=== PATIENT | female | born 1985 | race Caucasian/White ===

== ENCOUNTER 2016-12-23 15:24 | Emergency (ER) | payer MEDICAID ==
[~2016-12-23] VITALS: Ht 165.1 cm; Wt 75.0 kg
[~2016-12-23 15:24] MED LIST: ATIVAN 0.50.5 MG/TAB PO; BACTRIM DS 8001 TAB PO; BYSTOLIC PO; CATAPRES 0.1MG0.1 MG PO; CIPRO 500MG TA500 MG PO; CLINDAMYCIN300 MG PO; COLACE 100100 MG/CAP PO; DOXYCYCLINE 10100 MG PO; EC NAPROSYN500 MG PO; FLAGYL500 MG PO; FLEXERIL 1010 MG/TAB PO; IUD; KLONOPIN 1MG1 MG PO; LEXAPRO 10MG10 MG PO; LEXAPRO20 MG PO; LORTAB 5/500 501 TAB PO; METRONIDAZOLE375 MG PO; MOTRIN 400400 MG/TAB PO; NAPROXEN250 MG PO; NORCO 325 MG-51 TAB PO; OXECTA7.5 MG PO; PAXIL 10MG10 MG PO; PAXIL 20MG20 MG PO; PERCOCET 325 MG1 TA2; PERCOCET 325 MG1 TA2 PO; PERCOCET 5/321 UDTAB PO; PERCOCET 650 MG1 TAB PO; PHENERGAN 25 TA25 MG PO; PHENERGAN12.5 MG/SU RC; PHENERGAN25 MG RC; PRENATAL VITAMI1 TA5 PO; PRINIVIL10 MG PO; SUBOXONE 2 MG-01 TAB PO; TOPROL XL 50MG50 MG PO; TOPROL XL100 MG PO; ULTRAM 50MG TAB50 MG; ULTRAM 50MG TAB50 MG PO; VALIUM 2MG T2 MG/TAB PO; VALIUM 5MG T5 MG/TAB PO; XANAX 0.5MG0.5 MG PO; XANAX 1MG1 MG PO; ZOFRAN 4MG T4 MG/TAB PO; [UNRECOGNIZED DRUG - OTHER] PO
[2016-12-23 15:41] VITALS: BP 126/75; TEMP 98.3
[2016-12-23] MEDS ORDERED: PRINIVIL10 MG PO (16:07)
[2016-12-23] MEDS ORDERED: CELEXA10 MG PO (16:07)
[2016-12-23] MEDS ORDERED: KLONOPIN 1MG1 MG PO (16:07)
[2016-12-23] MEDS ORDERED: SEROQUEL 1100 MG/TAB PO (16:07)
[2016-12-23] MEDS ORDERED: SEPTRA DS 8001 TAB PO (16:14)
[2016-12-23 16:26] VITALS: PULSE 107
== END 2016-12-23 16:26 | disposition home or self-care (01) ==
LOC: COL.ER 15:24
DX: F31.9 Bipolar disorder, unspecified (principal); I10 Essential (primary) hypertension; F17.210 Nicotine dependence, cigarettes, uncomplicated; Z76.0 Encounter for issue of repeat prescription

== ENCOUNTER 2017-02-02 13:44 | Emergency (ER) | payer MEDICAID ==
[~2017-02-02] VITALS: Ht 162.6 cm; Wt 79.5 kg
[~2017-02-02 13:44] MED LIST changes: +CELEXA10 MG PO; +SEPTRA DS 8001 TAB PO; +SEROQUEL 1100 MG/TAB PO
[2017-02-02 13:50] VITALS: BP 134/80; PULSE 84; TEMP 97.9
[2017-02-02] MEDS ORDERED: CELEXA 20MG20 MG/TAB PO (13:54)
[2017-02-02 14:24] LABS: PH 7 (5-8); URINE APPEARANCE Hazy; URINE BACTERIA Rare /hpf; URINE BILIRUBIN Negative (NEGATIVE); URINE BLOOD Negative (NEGATIVE); URINE COLOR Straw; URINE GLUCOSE Negative (NEGATIVE); URINE KETONE Negative (NEGATIVE); URINE RBC 0-2 /hpf; URINE UROBILINOGEN Negative (NEGATIVE); URINE WBC 0-2 /hpf
[2017-02-02] MEDS ORDERED: FLAGYL500 MG PO (15:02)
== END 2017-02-02 15:09 | disposition home or self-care (01) ==
LOC: COL.ER 13:44
PROVIDERS: Emergency Medicine
DX: R35.8 Other polyuria (principal); M54.5 Low back pain; I10 Essential (primary) hypertension; F41.9 Anxiety disorder, unspecified

== ENCOUNTER 2017-03-16 12:56 | Emergency (ER) | payer MEDICAID ==
[~2017-03-16] VITALS: Ht 162.6 cm; Wt 75.0 kg
[~2017-03-16 12:56] MED LIST changes: +CELEXA 20MG20 MG/TAB PO
[2017-03-16 12:57] VITALS: TEMP 98.9
[2017-03-16 13:44] LABS: BASO # 0.1 (0.0-0.2); BASO % 0.5 % (0.0-2.0); EOS # 0.1 (0.0-0.7); EOS % 1.3 % (0-4.0); GRAN # 6.6 (1.4-6.5); HEMATOCRIT 39.1 % (37.0-47.0); HEMOGLOBIN 13.7 g/dl (12.5-16.0); LYMPH # 2.4 (1.2-3.4); LYMPH % 24.4 % (20.0-51.0); MEAN CELL VOLUME 93 fl (80.0-100.0); MEAN CORPUSCULAR HEMOGLOBIN 33 pg (27.0-31.0); MEAN CORPUSCULAR HGB CONC 35 g/dl (33.0-37.0); MONO # 0.4 (0.1-0.6); MONO % 4.6 % (1.7-9.3); PLATELET COUNT 268 K/mm3 (130-400); RED BLOOD COUNT 4.21 M/mm3 (4.10-5.30); REDCELL DISTRIBUTION WIDTH-CV 12.9 % (11.5-14.5); WHITE BLOOD COUNT 9.7 K/mm3 (4.8-10.8)
[2017-03-16 13:50] LABS: PH 5 (5-8); SQUAMOUS EPITHELIAL 0-2 /hpf; URINE APPEARANCE Clear; URINE BACTERIA Rare /hpf; URINE BILIRUBIN Negative (NEGATIVE); URINE BLOOD 1+ (NEGATIVE); URINE COLOR Straw; URINE GLUCOSE Negative (NEGATIVE); URINE KETONE Negative (NEGATIVE); URINE RBC 0-2 /hpf; URINE UROBILINOGEN Negative (NEGATIVE); URINE WBC 0-2 /hpf
[2017-03-16 13:57] LABS: ADJUSTED CALCIUM 9.2 mg/dL (8.4-10.2); ALANINE AMINOTRANSFERASE 15 U/L (9-52); ALBUMIN 4.1 gm/dL (3.5-5.0); ALKALINE PHOSPHATASE 59 U/L (50-136); ANION GAP 11 mmol/L (7-16); BILIRUBIN,TOTAL 0.5 mg/dL (0.0-1.0); BLOOD UREA NITROGEN 9 mg/dL (7-17); CALCIUM 9.3 mg/dL (8.4-10.2); CARBON DIOXIDE 20 mmol/L (22-30); CHLORIDE 106 mmol/L (98-107); CREATININE, serum 0.72 mg/dL (0.52-1.25); GLUCOSE 143 mg/dL (74-106); POTASSIUM 3.8 mmol/L (3.4-5.0); SODIUM 137 mmol/L (137-145); TOTAL PROTEIN 7.3 gm/dL (6.4-8.2)
[2017-03-16 13:59] LABS: C-REACTIVE PROTEIN < 0.5 mg/dL (0.0-0.9)
[2017-03-16] MEDS ORDERED: NORCO 325 MG-51 TAB PO (15:19)
[2017-03-16 15:35] VITALS: BP 113/79; PULSE 92
== END 2017-03-16 15:38 | disposition home or self-care (01) ==
LOC: COL.ER 12:56
PROVIDERS: Nurse Practitioner
DX: R10.31 Right lower quadrant pain (principal); I10 Essential (primary) hypertension; F31.9 Bipolar disorder, unspecified; F17.210 Nicotine dependence, cigarettes, uncomplicated; Z90.711 Acquired absence of uterus with remaining cervical stump; Z87.42 Personal history of other diseases of the female genital tract
CPT/HCPCS: J1170; J2270; J2405; J7030; Q9967

== ENCOUNTER 2017-03-18 09:29 | Emergency (ER) | payer MEDICAID ==
[~2017-03-18] VITALS: Ht 162.6 cm; Wt 75.0 kg
[2017-03-18 09:35] VITALS: TEMP 99.7
[2017-03-18 10:17] LABS: HEMATOCRIT 39.3 % (37.0-47.0); HEMOGLOBIN 13.6 g/dl (12.5-16.0); MEAN CELL VOLUME 93 fl (80.0-100.0); MEAN CORPUSCULAR HEMOGLOBIN 32 pg (27.0-31.0); MEAN CORPUSCULAR HGB CONC 35 g/dl (33.0-37.0); PLATELET COUNT 267 K/mm3 (130-400); RED BLOOD COUNT 4.24 M/mm3 (4.10-5.30); WHITE BLOOD COUNT 7.4 K/mm3 (4.8-10.8)
[2017-03-18 10:18] LABS: ADD PATHOLOGY DIFF REVIEW NO
[2017-03-18 10:30] LABS: PH 6 (5-8); SQUAMOUS EPITHELIAL 0-2 /hpf; URINE APPEARANCE Clear; URINE BACTERIA Rare /hpf; URINE BILIRUBIN Negative (NEGATIVE); URINE BLOOD Negative (NEGATIVE); URINE COLOR Straw; URINE GLUCOSE 1+ (NEGATIVE); URINE KETONE Negative (NEGATIVE); URINE RBC 0-2 /hpf; URINE UROBILINOGEN Negative (NEGATIVE); URINE WBC 0-2 /hpf
[2017-03-18 10:32] LABS: ALANINE AMINOTRANSFERASE 12 U/L (9-52); ALKALINE PHOSPHATASE 67 U/L (50-136); ANION GAP 12 mmol/L (7-16); BILIRUBIN,TOTAL 0.4 mg/dL (0.0-1.0); BLOOD UREA NITROGEN 6 mg/dL (7-17); CARBON DIOXIDE 21 mmol/L (22-30); CHLORIDE 107 mmol/L (98-107); CREATININE, serum 0.68 mg/dL (0.52-1.25); GLUCOSE 181 mg/dL (74-106); LIPASE 37 U/L (23-300); POTASSIUM 3.9 mmol/L (3.4-5.0); SODIUM 140 mmol/L (137-145); TOTAL PROTEIN 7.1 gm/dL (6.4-8.2)
[2017-03-18 10:41] LABS: C-REACTIVE PROTEIN < 0.5 mg/dL (0.0-0.9)
[2017-03-18 10:45] LABS: BAND 1 % (0-10); NEUTROPHILS 62 % (42.0-75.2); PLATELET ESTIMATE NORMAL (NORMAL); TOTAL CELLS COUNTED 100
[2017-03-18] MEDS ORDERED: PERCOCET 325 MG1 TA2 PO (11:42)
[2017-03-18 11:45] VITALS: BP 128/84; PULSE 94
== END 2017-03-18 11:52 | disposition home or self-care (01) ==
LOC: COL.ER 09:29
PROVIDERS: Emergency Medicine
DX: R10.30 Lower abdominal pain, unspecified (principal); Z90.710 Acquired absence of both cervix and uterus
CPT/HCPCS: J1170; J2270; J2405; J7030

== ENCOUNTER 2017-05-26 10:34 | Emergency (ER) | payer MEDICAID ==
[~2017-05-26] VITALS: Ht 162.6 cm; Wt 72.7 kg
[2017-05-26 10:36] VITALS: TEMP 96.7
[2017-05-26 11:01] LABS: COLLECTION METHOD CLEAN CATCH
[2017-05-26 11:12] LABS: PH 6 (5-8); URINE APPEARANCE Hazy; URINE BACTERIA Many /hpf; URINE BILIRUBIN Negative (NEGATIVE); URINE BLOOD Negative (NEGATIVE); URINE COLOR Straw; URINE GLUCOSE 3+ (NEGATIVE); URINE KETONE Negative (NEGATIVE); URINE LEUKOCYTE ESTERASE Negative (NEGATIVE); URINE PROTEIN(semi-quant) Negative (NEGATIVE); URINE RBC 0-2 /hpf; URINE UROBILINOGEN Negative (NEGATIVE)
[2017-05-26 11:22] LABS: BASO % 0.4 % (0.0-2.0); EOS # 0.1 (0.0-0.7); EOS % 0.9 % (0-4.0); GRAN # 7.1 (1.4-6.5); GRAN % 74.3 % (42.2-75.2); HEMATOCRIT 45.3 % (37.0-47.0); HEMOGLOBIN 15.7 g/dl (12.5-16.0); LYMPH # 1.8 (1.2-3.4); LYMPH % 18.9 % (20.0-51.0); MEAN CELL VOLUME 94 fl (80.0-100.0); MEAN CORPUSCULAR HEMOGLOBIN 32 pg (27.0-31.0); MEAN CORPUSCULAR HGB CONC 35 g/dl (33.0-37.0); MEAN PLATELET VOLUME 10.2 fl (7.4-10.4); MONO # 0.4 (0.1-0.6); MONO % 4.6 % (1.7-9.3); PLATELET COUNT 325 K/mm3 (130-400); RED BLOOD COUNT 4.84 M/mm3 (4.10-5.30); WHITE BLOOD COUNT 9.6 K/mm3 (4.8-10.8)
[2017-05-26 11:32] LABS: ADJUSTED CALCIUM 9.6 mg/dL (8.4-10.2); ALBUMIN 4.8 gm/dL (3.5-5.0); BILIRUBIN,TOTAL 0.4 mg/dL (0.0-1.0); C-REACTIVE PROTEIN 0.6 mg/dL (0.0-0.9); CALCIUM 10.2 mg/dL (8.4-10.2); CREATININE, serum 0.66 mg/dL (0.52-1.25); POTASSIUM 3.4 mmol/L (3.4-5.0); TOTAL PROTEIN 8.4 gm/dL (6.4-8.2)
[2017-05-26 13:44] VITALS: BP 101/77; PULSE 88
== END 2017-05-26 13:44 | disposition home or self-care (01) ==
LOC: COL.ER 10:34
PROVIDERS: Emergency Medicine
DX: R10.30 Lower abdominal pain, unspecified (principal); R00.2 Palpitations; R00.0 Tachycardia, unspecified; G89.29 Other chronic pain; F31.9 Bipolar disorder, unspecified; F17.210 Nicotine dependence, cigarettes, uncomplicated; Z90.710 Acquired absence of both cervix and uterus; Z98.51 Tubal ligation status
CPT/HCPCS: J2060; J2270; J2405; J7030

== ENCOUNTER 2017-06-17 13:33 | Emergency (ER) | payer MEDICAID ==
[~2017-06-17] VITALS: Ht 162.6 cm; Wt 72.7 kg
[2017-06-17 13:37] VITALS: TEMP 98.8
[2017-06-17 15:21] VITALS: BP 153/99
[2017-06-17 15:58] LABS: COLLECTION METHOD CLEAN CATCH
[2017-06-17 16:03] LABS: BASO # 0.1 (0.0-0.2); BASO % 0.4 % (0.0-2.0); EOS % 0.2 % (0-4.0); GRAN # 9.7 (1.4-6.5); GRAN % 79.2 % (42.2-75.2); HEMATOCRIT 43.2 % (37.0-47.0); LYMPH # 1.7 (1.2-3.4); LYMPH % 14.3 % (20.0-51.0); MEAN CELL VOLUME 92 fl (80.0-100.0); MEAN CORPUSCULAR HEMOGLOBIN 32 pg (27.0-31.0); MEAN CORPUSCULAR HGB CONC 35 g/dl (33.0-37.0); MEAN PLATELET VOLUME 9.5 fl (7.4-10.4); MONO # 0.6 (0.1-0.6); MONO % 4.9 % (1.7-9.3); PLATELET COUNT 310 K/mm3 (130-400); WHITE BLOOD COUNT 12.2 K/mm3 (4.8-10.8)
[2017-06-17 16:05] LABS: PH 6 (5-8); SQUAMOUS EPITHELIAL 0-2 /hpf; URINE APPEARANCE Clear; URINE BACTERIA Rare /hpf; URINE BILIRUBIN Negative (NEGATIVE); URINE BLOOD 1+ (NEGATIVE); URINE COLOR Straw; URINE GLUCOSE Negative (NEGATIVE); URINE KETONE Negative (NEGATIVE); URINE LEUKOCYTE ESTERASE Negative (NEGATIVE); URINE PROTEIN(semi-quant) Negative (NEGATIVE); URINE RBC 0-2 /hpf; URINE UROBILINOGEN Negative (NEGATIVE); URINE WBC 0-2 /hpf
[2017-06-17] MEDS ORDERED: PERCOCET 325 MG1 TA2 PO (16:08)
[2017-06-17 16:39] LABS: ALANINE AMINOTRANSFERASE 25 U/L (9-52); ALBUMIN 4.9 gm/dL (3.5-5.0); ALKALINE PHOSPHATASE 77 U/L (50-136); ANION GAP 11 mmol/L (7-16); BILIRUBIN,TOTAL 0.4 mg/dL (0.0-1.0); BLOOD UREA NITROGEN 12 mg/dL (7-17); CALCIUM 9.7 mg/dL (8.4-10.2); CARBON DIOXIDE 23 mmol/L (22-30); CHLORIDE 105 mmol/L (98-107); CREATININE, serum 0.73 mg/dL (0.52-1.25); GLUCOSE 103 mg/dL (74-106); LIPASE 51 U/L (23-300); POTASSIUM 4.1 mmol/L (3.4-5.0); SODIUM 139 mmol/L (137-145); TOTAL PROTEIN 8.2 gm/dL (6.4-8.2)
[2017-06-17 16:44] LABS: C-REACTIVE PROTEIN < 0.5 mg/dL (0.0-0.9)
[2017-06-17 17:05] VITALS: PULSE 91
== END 2017-06-17 17:07 | disposition home or self-care (01) ==
LOC: COL.ER 13:33
PROVIDERS: Family Medicine
DX: K58.9 Irritable bowel syndrome, unspecified (principal)
CPT/HCPCS: C9113; J2060; J2270; J2405; J7030

== ENCOUNTER 2017-06-30 12:47 | Emergency (ER) | payer MEDICAID ==
[~2017-06-30] VITALS: Ht 162.6 cm; Wt 72.7 kg
[2017-06-30 12:58] VITALS: BP 138/97; TEMP 99.2
[2017-06-30 13:39] LABS: COLLECTION METHOD CLEAN CATCH
[2017-06-30 13:49] LABS: BASO % 0.4 % (0.0-2.0); EOS % 0.3 % (0-4.0); GRAN # 6.5 (1.4-6.5); GRAN % 69.7 % (42.2-75.2); HEMOGLOBIN 15.2 g/dl (12.5-16.0); LYMPH # 2.1 (1.2-3.4); LYMPH % 22.4 % (20.0-51.0); MEAN CELL VOLUME 93 fl (80.0-100.0); MEAN CORPUSCULAR HEMOGLOBIN 33 pg (27.0-31.0); MEAN CORPUSCULAR HGB CONC 35 g/dl (33.0-37.0); MONO # 0.6 (0.1-0.6); MONO % 6.1 % (1.7-9.3); PLATELET COUNT 314 K/mm3 (130-400); RED BLOOD COUNT 4.65 M/mm3 (4.10-5.30); REDCELL DISTRIBUTION WIDTH-CV 12.8 % (11.5-14.5)
[2017-06-30 13:51] LABS: MUCOUS Present /lpf; PH 6 (5-8); URINE APPEARANCE Hazy; URINE BACTERIA Many /hpf; URINE BILIRUBIN Negative (NEGATIVE); URINE BLOOD 1+ (NEGATIVE); URINE COLOR Yellow; URINE GLUCOSE Negative (NEGATIVE); URINE KETONE Negative (NEGATIVE); URINE LEUKOCYTE ESTERASE Negative (NEGATIVE); URINE NITRATE Negative (NEGATIVE); URINE PROTEIN(semi-quant) Negative (NEGATIVE); URINE UROBILINOGEN Negative (NEGATIVE)
[2017-06-30 13:54] LABS: ALANINE AMINOTRANSFERASE 19 U/L (9-52); ALBUMIN 5.2 gm/dL (3.5-5.0); ALKALINE PHOSPHATASE 80 U/L (50-136); ANION GAP 12 mmol/L (7-16); AST,SGOT 20 U/L (15-37); BILIRUBIN,TOTAL 0.7 mg/dL (0.0-1.0); BLOOD UREA NITROGEN 8 mg/dL (7-17); CALCIUM 9.9 mg/dL (8.4-10.2); CARBON DIOXIDE 23 mmol/L (22-30); CHLORIDE 104 mmol/L (98-107); CREATININE, serum 0.66 mg/dL (0.52-1.25); GLUCOSE 109 mg/dL (74-106); LIPASE 71 U/L (23-300); POTASSIUM 3.7 mmol/L (3.4-5.0); SODIUM 139 mmol/L (137-145); TOTAL PROTEIN 8.6 gm/dL (6.4-8.2)
[2017-06-30 13:55] LABS: C-REACTIVE PROTEIN < 0.5 mg/dL (0.0-0.9)
[2017-06-30] MEDS ORDERED: BACTRIM DS 8001 TAB PO (14:31)
[2017-06-30 15:08] VITALS: PULSE 82
== END 2017-06-30 15:08 | disposition home or self-care (01) ==
LOC: COL.ER 12:47
PROVIDERS: Nurse Practitioner Primary Care
DX: N12 Tubulo-interstitial nephritis, not specified as acute or chronic (principal); I10 Essential (primary) hypertension; F32.9 Major depressive disorder, single episode, unspecified; F41.9 Anxiety disorder, unspecified; F17.210 Nicotine dependence, cigarettes, uncomplicated; Z87.442 Personal history of urinary calculi; Z90.710 Acquired absence of both cervix and uterus; Z98.51 Tubal ligation status
CPT/HCPCS: J0696; J1170; J2270; J2405

== ENCOUNTER 2017-07-13 14:15 | Emergency (ER) | payer MEDICAID ==
[~2017-07-13] VITALS: Ht 162.6 cm; Wt 70.5 kg
[2017-07-13 14:17] VITALS: TEMP 99.9
[2017-07-13 14:47] LABS: BASO # 0.1 (0.0-0.2); BASO % 0.4 % (0.0-2.0); EOS # 0.1 (0.0-0.7); GRAN # 8.2 (1.4-6.5); GRAN % 62.6 % (42.2-75.2); HEMATOCRIT 43.9 % (37.0-47.0); LYMPH # 3.8 (1.2-3.4); LYMPH % 29.2 % (20.0-51.0); MEAN CELL VOLUME 96 fl (80.0-100.0); MEAN CORPUSCULAR HEMOGLOBIN 33 pg (27.0-31.0); MEAN CORPUSCULAR HGB CONC 34 g/dl (33.0-37.0); MEAN PLATELET VOLUME 9.8 fl (7.4-10.4); MONO # 0.8 (0.1-0.6); MONO % 5.9 % (1.7-9.3); PLATELET COUNT 287 K/mm3 (130-400); RED BLOOD COUNT 4.56 M/mm3 (4.10-5.30); REDCELL DISTRIBUTION WIDTH-CV 13.2 % (11.5-14.5)
[2017-07-13 14:55] LABS: ALANINE AMINOTRANSFERASE 16 U/L (9-52); ALBUMIN 4.5 gm/dL (3.5-5.0); ALKALINE PHOSPHATASE 66 U/L (50-136); ANION GAP 12 mmol/L (7-16); AST,SGOT 35 U/L (15-37); BILIRUBIN,TOTAL 0.4 mg/dL (0.0-1.0); BLOOD UREA NITROGEN 10 mg/dL (7-17); CALCIUM 9.6 mg/dL (8.4-10.2); CARBON DIOXIDE 25 mmol/L (22-30); CHLORIDE 100 mmol/L (98-107); CREATININE, serum 0.74 mg/dL (0.52-1.25); GLUCOSE 135 mg/dL (74-106); LIPASE 35 U/L (23-300); POTASSIUM 3.5 mmol/L (3.4-5.0); SODIUM 136 mmol/L (137-145); TOTAL PROTEIN 7.7 gm/dL (6.4-8.2)
[2017-07-13 14:59] LABS: C-REACTIVE PROTEIN < 0.5 mg/dL (0.0-0.9)
[2017-07-13 15:04] LABS: TROPONIN-I < 0.012 ng/mL (0.000-0.034)
[2017-07-13 15:28] LABS: COLLECTION METHOD CLEAN CATCH
[2017-07-13 15:37] LABS: MUCOUS Present /lpf; PH 6 (5-8); URINE APPEARANCE Cloudy; URINE BACTERIA Moderate /hpf; URINE BILIRUBIN Negative (NEGATIVE); URINE BLOOD 1+ (NEGATIVE); URINE COLOR Yellow; URINE GLUCOSE Negative (NEGATIVE); URINE KETONE Negative (NEGATIVE); URINE LEUKOCYTE ESTERASE Negative (NEGATIVE); URINE NITRATE Negative (NEGATIVE); URINE PROTEIN(semi-quant) Negative (NEGATIVE); URINE UROBILINOGEN Negative (NEGATIVE)
[2017-07-13 16:57] VITALS: BP 106/66; PULSE 78
[2017-07-13] MEDS ORDERED: PERCOCET 325 MG1 TA2 PO (19:17)
[2017-07-13] MEDS ORDERED: PHENERGAN 25 TA25 MG PO (21:04)
== END 2017-07-13 17:00 | disposition home or self-care (01) ==
LOC: COL.ER 14:15
PROVIDERS: Emergency Medicine
DX: F41.9 Anxiety disorder, unspecified (principal); F31.9 Bipolar disorder, unspecified; R10.11 Right upper quadrant pain; R10.31 Right lower quadrant pain; R00.0 Tachycardia, unspecified; F17.210 Nicotine dependence, cigarettes, uncomplicated
CPT/HCPCS: J2270; J7030

== ENCOUNTER 2017-07-13 18:26 | Emergency (ER) | payer MEDICAID ==
[~2017-07-13] VITALS: Ht 162.6 cm; Wt 70.5 kg
[2017-07-13 18:32] VITALS: TEMP 99.5
[2017-07-13] MEDS ORDERED: PERCOCET 325 MG1 TA2 PO (19:17)
[2017-07-13 19:47] LABS: COLLECTION METHOD CLEAN CATCH
[2017-07-13 19:57] LABS: BASO % 0.4 % (0.0-2.0); EOS # 0.1 (0.0-0.7); GRAN # 6.1 (1.4-6.5); GRAN % 65.2 % (42.2-75.2); HEMATOCRIT 38.6 % (37.0-47.0); LYMPH # 2.5 (1.2-3.4); LYMPH % 26.8 % (20.0-51.0); MEAN CELL VOLUME 97 fl (80.0-100.0); MEAN CORPUSCULAR HEMOGLOBIN 33 pg (27.0-31.0); MEAN CORPUSCULAR HGB CONC 34 g/dl (33.0-37.0); MEAN PLATELET VOLUME 9.8 fl (7.4-10.4); MONO # 0.6 (0.1-0.6); MONO % 5.9 % (1.7-9.3); PLATELET COUNT 224 K/mm3 (130-400); REDCELL DISTRIBUTION WIDTH-CV 13.2 % (11.5-14.5)
[2017-07-13 20:07] LABS: ALANINE AMINOTRANSFERASE 20 U/L (9-52); ALBUMIN 3.9 gm/dL (3.5-5.0); ALKALINE PHOSPHATASE 47 U/L (50-136); ANION GAP 5 mmol/L (7-16); AST,SGOT 16 U/L (15-37); BILIRUBIN,TOTAL 0.1 mg/dL (0.0-1.0); BLOOD UREA NITROGEN 8 mg/dL (7-17); CALCIUM 8.7 mg/dL (8.4-10.2); CARBON DIOXIDE 24 mmol/L (22-30); CHLORIDE 106 mmol/L (98-107); CREATININE, serum 0.64 mg/dL (0.52-1.25); GLUCOSE 82 mg/dL (74-106); POTASSIUM 4.1 mmol/L (3.4-5.0); SODIUM 134 mmol/L (137-145); TOTAL PROTEIN 6.8 gm/dL (6.4-8.2)
[2017-07-13 20:10] LABS: C-REACTIVE PROTEIN < 0.5 mg/dL (0.0-0.9)
[2017-07-13 20:38] LABS: PH 5 (5-8); URINE APPEARANCE Hazy; URINE BACTERIA Many /hpf; URINE BILIRUBIN Negative (NEGATIVE); URINE BLOOD 1+ (NEGATIVE); URINE COLOR Straw; URINE GLUCOSE Negative (NEGATIVE); URINE KETONE Negative (NEGATIVE); URINE LEUKOCYTE ESTERASE Negative (NEGATIVE); URINE NITRATE Negative (NEGATIVE); URINE PROTEIN(semi-quant) Negative (NEGATIVE); URINE RBC 0-2 /hpf; URINE UROBILINOGEN Negative (NEGATIVE)
[2017-07-13] MEDS ORDERED: PHENERGAN 25 TA25 MG PO (21:04)
[2017-07-13 21:46] VITALS: BP 112/74; PULSE 79
== END 2017-07-13 21:48 | disposition home or self-care (01) ==
LOC: COL.ER 18:26
PROVIDERS: Emergency Medicine
DX: R10.30 Lower abdominal pain, unspecified (principal); G89.29 Other chronic pain; F31.9 Bipolar disorder, unspecified; Z87.440 Personal history of urinary (tract) infections; Z90.710 Acquired absence of both cervix and uterus
CPT/HCPCS: J1170; J1200; J1630; J7030

== ENCOUNTER 2017-07-20 17:12 | Emergency (ER) | payer MEDICAID ==
[~2017-07-20] VITALS: Ht 162.6 cm; Wt 72.7 kg
[2017-07-20 17:14] VITALS: BP 135/78; PULSE 133; TEMP 100
[2017-07-20 18:36] LABS: BASO # 0.1 (0.0-0.2); BASO % 0.5 % (0.0-2.0); EOS # 0.1 (0.0-0.7); EOS % 0.6 % (0-4.0); GRAN # 7.5 (1.4-6.5); GRAN % 73.4 % (42.2-75.2); HEMATOCRIT 40.1 % (37.0-47.0); HEMOGLOBIN 13.7 g/dl (12.5-16.0); LYMPH % 19.9 % (20.0-51.0); MEAN CELL VOLUME 95 fl (80.0-100.0); MEAN CORPUSCULAR HEMOGLOBIN 33 pg (27.0-31.0); MEAN CORPUSCULAR HGB CONC 34 g/dl (33.0-37.0); MONO # 0.5 (0.1-0.6); MONO % 4.9 % (1.7-9.3); PLATELET COUNT 257 K/mm3 (130-400); RED BLOOD COUNT 4.22 M/mm3 (4.10-5.30)
[2017-07-20 18:53] LABS: ALANINE AMINOTRANSFERASE 21 U/L (9-52); ALBUMIN 4.2 gm/dL (3.5-5.0); ALKALINE PHOSPHATASE 57 U/L (50-136); ANION GAP 8 mmol/L (7-16); AST,SGOT 22 U/L (15-37); BILIRUBIN,TOTAL 0.4 mg/dL (0.0-1.0); BLOOD UREA NITROGEN 6 mg/dL (7-17); CALCIUM 9.4 mg/dL (8.4-10.2); CARBON DIOXIDE 28 mmol/L (22-30); CHLORIDE 104 mmol/L (98-107); CREATININE, serum 0.66 mg/dL (0.52-1.25); GLUCOSE 95 mg/dL (74-106); LIPASE 20 U/L (23-300); POTASSIUM 4.5 mmol/L (3.4-5.0); SODIUM 139 mmol/L (137-145); TOTAL PROTEIN 7.3 gm/dL (6.4-8.2)
[2017-07-20 19:04] LABS: C-REACTIVE PROTEIN < 0.5 mg/dL (0.0-0.9)
== END 2017-07-20 18:32 | disposition left against medical advice (07) ==
LOC: COL.ER 17:12
PROVIDERS: Nurse Practitioner
DX: R10.11 Right upper quadrant pain (principal); I10 Essential (primary) hypertension; F32.9 Major depressive disorder, single episode, unspecified; F41.9 Anxiety disorder, unspecified; F17.210 Nicotine dependence, cigarettes, uncomplicated
CPT/HCPCS: J1630; J2550; J7030

== ENCOUNTER 2017-07-22 11:14 | Emergency (ER) | payer MEDICAID ==
[~2017-07-22] VITALS: Ht 162.6 cm; Wt 74.9 kg
[2017-07-22 11:18] VITALS: TEMP 98
[2017-07-22 12:10] VITALS: BP 131/97
[2017-07-22 12:22] LABS: COLLECTION METHOD CLEAN CATCH
[2017-07-22 12:29] LABS: MUCOUS Present /lpf; PH 6 (5-8); SQUAMOUS EPITHELIAL 0-2 /hpf; URINE APPEARANCE Clear; URINE BACTERIA Occasional /hpf; URINE BILIRUBIN Negative (NEGATIVE); URINE BLOOD Negative (NEGATIVE); URINE COLOR Straw; URINE GLUCOSE Negative (NEGATIVE); URINE KETONE Negative (NEGATIVE); URINE LEUKOCYTE ESTERASE Negative (NEGATIVE); URINE NITRATE Negative (NEGATIVE); URINE PROTEIN(semi-quant) Negative (NEGATIVE); URINE RBC 0-2 /hpf; URINE UROBILINOGEN Negative (NEGATIVE)
[2017-07-22 12:30] LABS: BASO % 0.4 % (0.0-2.0); EOS # 0.1 (0.0-0.7); EOS % 1.1 % (0-4.0); GRAN # 5.3 (1.4-6.5); GRAN % 65.2 % (42.2-75.2); HEMATOCRIT 44.7 % (37.0-47.0); HEMOGLOBIN 15.5 g/dl (12.5-16.0); LYMPH # 2.2 (1.2-3.4); LYMPH % 27.2 % (20.0-51.0); MEAN CELL VOLUME 95 fl (80.0-100.0); MEAN CORPUSCULAR HEMOGLOBIN 33 pg (27.0-31.0); MEAN CORPUSCULAR HGB CONC 35 g/dl (33.0-37.0); MONO # 0.4 (0.1-0.6); MONO % 5.1 % (1.7-9.3); PLATELET COUNT 306 K/mm3 (130-400); RED BLOOD COUNT 4.73 M/mm3 (4.10-5.30); REDCELL DISTRIBUTION WIDTH-CV 12.9 % (11.5-14.5)
[2017-07-22 12:42] LABS: BILIRUBIN,TOTAL 0.4 mg/dL (0.0-1.0); CALCIUM 9.8 mg/dL (8.4-10.2); CREATININE, serum 0.81 mg/dL (0.52-1.25); POTASSIUM 3.8 mmol/L (3.4-5.0); TOTAL PROTEIN 8.4 gm/dL (6.4-8.2)
[2017-07-22 12:48] LABS: C-REACTIVE PROTEIN 0.5 mg/dL (0.0-0.9)
[2017-07-22] MEDS ORDERED: PROTONIX 40MG T40 MG PO (14:11)
[2017-07-22 14:26] VITALS: PULSE 91
== END 2017-07-22 14:23 | disposition home or self-care (01) ==
LOC: COL.ER 11:14
PROVIDERS: Nurse Practitioner
DX: R10.11 Right upper quadrant pain (principal); R11.2 Nausea with vomiting, unspecified; I10 Essential (primary) hypertension; F41.9 Anxiety disorder, unspecified; F32.9 Major depressive disorder, single episode, unspecified; Z90.710 Acquired absence of both cervix and uterus; Z98.51 Tubal ligation status
CPT/HCPCS: J1630; J2405; J3010; J7030

== ENCOUNTER 2017-08-03 12:24 | Emergency (ER) | payer MEDICAID ==
[~2017-08-03] VITALS: Ht 162.6 cm; Wt 76.4 kg
[~2017-08-03 12:24] MED LIST changes: +PROTONIX 40MG T40 MG PO
[2017-08-03 12:27] VITALS: BP 126/85; TEMP 99.8
[2017-08-03 13:07] LABS: COLLECTION METHOD CLEAN CATCH
[2017-08-03 13:14] LABS: PH 6 (5-8); URINE APPEARANCE Hazy; URINE BACTERIA Rare /hpf; URINE BILIRUBIN Negative (NEGATIVE); URINE BLOOD 1+ (NEGATIVE); URINE COLOR Straw; URINE GLUCOSE Negative (NEGATIVE); URINE KETONE Negative (NEGATIVE); URINE LEUKOCYTE ESTERASE Negative (NEGATIVE); URINE NITRATE Negative (NEGATIVE); URINE PROTEIN(semi-quant) Negative (NEGATIVE); URINE RBC 0-2 /hpf; URINE UROBILINOGEN Negative (NEGATIVE)
[2017-08-03 13:46] VITALS: PULSE 102
== END 2017-08-03 13:47 | disposition home or self-care (01) ==
LOC: COL.ER 12:24
PROVIDERS: Emergency Medicine
DX: F11.23 Opioid dependence with withdrawal (principal); G89.29 Other chronic pain; M54.5 Low back pain; R10.30 Lower abdominal pain, unspecified; Z87.440 Personal history of urinary (tract) infections; Z90.711 Acquired absence of uterus with remaining cervical stump; Z88.0 Allergy status to penicillin; Z88.1 Allergy status to other antibiotic agents; Z88.8 Allergy status to other drugs, medicaments and biological substances

== ENCOUNTER 2017-08-10 12:29 | Emergency (ER) | payer MEDICAID ==
[~2017-08-10] VITALS: Ht 162.6 cm; Wt 76.4 kg
[2017-08-10 12:33] VITALS: BP 137/103; TEMP 98.9
[2017-08-10 13:16] LABS: COLLECTION METHOD CLEAN CATCH
[2017-08-10 13:20] LABS: BASO # 0.1 (0.0-0.2); BASO % 0.5 % (0.0-2.0); EOS # 0.1 (0.0-0.7); EOS % 0.5 % (0-4.0); GRAN # 6.2 (1.4-6.5); GRAN % 65.6 % (42.2-75.2); HEMATOCRIT 42.5 % (37.0-47.0); LYMPH # 2.4 (1.2-3.4); LYMPH % 25.2 % (20.0-51.0); MEAN CELL VOLUME 93 fl (80.0-100.0); MEAN CORPUSCULAR HEMOGLOBIN 33 pg (27.0-31.0); MEAN CORPUSCULAR HGB CONC 35 g/dl (33.0-37.0); MEAN PLATELET VOLUME 9.7 fl (7.4-10.4); MONO # 0.7 (0.1-0.6); MONO % 7.1 % (1.7-9.3); PLATELET COUNT 264 K/mm3 (130-400); RED BLOOD COUNT 4.58 M/mm3 (4.10-5.30); REDCELL DISTRIBUTION WIDTH-CV 12.9 % (11.5-14.5)
[2017-08-10 13:38] LABS: PH 6 (5-8); URINE APPEARANCE Clear; URINE BILIRUBIN Negative (NEGATIVE); URINE BLOOD 1+ (NEGATIVE); URINE COLOR Straw; URINE GLUCOSE Negative (NEGATIVE); URINE KETONE Negative (NEGATIVE); URINE LEUKOCYTE ESTERASE Negative (NEGATIVE); URINE NITRATE Negative (NEGATIVE); URINE PROTEIN(semi-quant) Negative (NEGATIVE); URINE UROBILINOGEN Negative (NEGATIVE)
[2017-08-10 13:44] LABS: BILIRUBIN,TOTAL 0.6 mg/dL (0.0-1.0); CALCIUM 9.9 mg/dL (8.4-10.2); CREATININE, serum 0.63 mg/dL (0.52-1.25); TOTAL PROTEIN 8.6 gm/dL (6.4-8.2)
[2017-08-10 13:44] LABS: URINE RBC 0-2 /hpf
[2017-08-10] MEDS ORDERED: LEVSIN 0.10.125 MG/T PO (14:03)
[2017-08-10 14:20] VITALS: PULSE 94
== END 2017-08-10 14:21 | disposition home or self-care (01) ==
LOC: COL.ER 12:29
PROVIDERS: Nurse Practitioner
DX: G89.29 Other chronic pain (principal); R10.84 Generalized abdominal pain; Z90.710 Acquired absence of both cervix and uterus
CPT/HCPCS: J0780; J1200; J2060; J3010; J7030

== ENCOUNTER 2017-10-05 07:49 | Observation (INO) | payer MEDICAID ==
[~2017-10-05] VITALS: Ht 162.6 cm; Wt 84.0 kg
[~2017-10-05 07:49] MED LIST changes: +LEVSIN 0.10.125 MG/T PO
[2017-10-05] MEDS ORDERED: CATAPRES 0.1MG0.1 MG PO (08:02)
[2017-10-05] MEDS ORDERED: ELIQUIS 5MG PO (08:02)
[2017-10-05] MEDS ORDERED: SUBOXONE 8 MG-21 TAB SL (08:03)
[2017-10-05] MEDS ORDERED: LASIX 40MG TABL40 MG PO (08:03)
[2017-10-05] MEDS ORDERED: DESYREL 100MG100 MG PO (08:04)
[2017-10-05] MEDS ORDERED: LEXAPRO20 MG PO (08:04)
[2017-10-05] MEDS ORDERED: PERIACTIN 4MG TA4 MG PO (08:05)
[2017-10-05 08:21] LABS: COLLECTION METHOD CLEAN CATCH
[2017-10-05 08:28] LABS: BASO % 0.2 % (0.0-2.0); EOS % 0.4 % (0-4.0); GRAN # 6.3 (1.4-6.5); GRAN % 64.9 % (42.2-75.2); HEMATOCRIT 39.8 % (37.0-47.0); HEMOGLOBIN 13.8 g/dl (12.5-16.0); LYMPH # 2.5 (1.2-3.4); LYMPH % 25.4 % (20.0-51.0); MEAN CELL VOLUME 93 fl (80.0-100.0); MEAN CORPUSCULAR HEMOGLOBIN 32 pg (27.0-31.0); MEAN CORPUSCULAR HGB CONC 35 g/dl (33.0-37.0); MEAN PLATELET VOLUME 9.9 fl (7.4-10.4); MONO # 0.8 (0.1-0.6); MONO % 7.7 % (1.7-9.3); PLATELET COUNT 244 K/mm3 (130-400); REDCELL DISTRIBUTION WIDTH-CV 12.5 % (11.5-14.5)
[2017-10-05 08:31] LABS: PH 6 (5-8); SQUAMOUS EPITHELIAL 0-2 /hpf; URINE APPEARANCE Clear; URINE BACTERIA Rare /hpf; URINE BILIRUBIN Negative (NEGATIVE); URINE BLOOD 1+ (NEGATIVE); URINE COLOR Straw; URINE GLUCOSE Negative (NEGATIVE); URINE KETONE Negative (NEGATIVE); URINE LEUKOCYTE ESTERASE Negative (NEGATIVE); URINE NITRATE Negative (NEGATIVE); URINE PROTEIN(semi-quant) Negative (NEGATIVE); URINE RBC None Seen /hpf; URINE UROBILINOGEN Negative (NEGATIVE)
[2017-10-05 08:33] LABS: INR 1.3 (0.8-3.0); PROTHROMBIN TIME 15.4 SECONDS (9.7-12.8)
[2017-10-05 08:37] LABS: ALANINE AMINOTRANSFERASE 65 U/L (9-52); ALBUMIN 4.1 gm/dL (3.5-5.0); ALKALINE PHOSPHATASE 79 U/L (50-136); ANION GAP 10 mmol/L (7-16); AST,SGOT 44 U/L (15-37); BILIRUBIN,TOTAL 0.5 mg/dL (0.0-1.0); BLOOD UREA NITROGEN 12 mg/dL (7-17); CARBON DIOXIDE 33 mmol/L (22-30); CHLORIDE 93 mmol/L (98-107); CREATININE, serum 0.74 mg/dL (0.52-1.25); GLUCOSE 94 mg/dL (74-106); MAGNESIUM 1.8 mg/dL (1.6-2.3); POTASSIUM 3.7 mmol/L (3.4-5.0); SODIUM 136 mmol/L (137-145); TOTAL PROTEIN 8.2 gm/dL (6.4-8.2)
[2017-10-05 08:50] LABS: TROPONIN-I < 0.012 ng/mL (0.000-0.034)
[2017-10-05 11:04] VITALS: BP 144/71; PULSE 100; TEMP 98.5
[2017-10-05 15:38] VITALS: BP 117/76; PULSE 106; TEMP 98.1
[2017-10-06] MEDS ORDERED: LOVENOX 100100 MG/ML SQ (16:31)
[2017-10-06] MEDS ORDERED: COUMADIN 22.5 MG/TAB PO (16:56)
== END 2017-10-05 19:00 | disposition home or self-care (01) ==
LOC: COL.ER 07:49 → MEDICAL 09:21 → COL.ER 09:21 → MEDICAL 09:22
PROVIDERS: Emergency Medicine
DX: L27.0 Generalized skin eruption due to drugs and medicaments taken internally (principal); R06.02 Shortness of breath; T50.905A Adverse effect of unspecified drugs, medicaments and biological substances, initial encounter; Z86.711 Personal history of pulmonary embolism; F17.210 Nicotine dependence, cigarettes, uncomplicated; Z87.448 Personal history of other diseases of urinary system; F32.9 Major depressive disorder, single episode, unspecified; F41.9 Anxiety disorder, unspecified; G89.29 Other chronic pain; M54.5 Low back pain; Z82.3 Family history of stroke; Z88.1 Allergy status to other antibiotic agents; Z88.0 Allergy status to penicillin; Z88.8 Allergy status to other drugs, medicaments and biological substances; D75.89 Other specified diseases of blood and blood-forming organs
CPT/HCPCS: 99223-AI; G0378; J1200; J2060; J2930; J7030

== ENCOUNTER 2017-10-06 15:35 | Emergency (ER) | payer MEDICAID ==
[~2017-10-06] VITALS: Ht 162.6 cm; Wt 86.4 kg
[~2017-10-06 15:35] MED LIST changes: +DESYREL 100MG100 MG PO; +ELIQUIS 5MG PO; +LASIX 40MG TABL40 MG PO; +PERIACTIN 4MG TA4 MG PO; +SUBOXONE 8 MG-21 TAB SL
[2017-10-06 16:17] VITALS: TEMP 97.9
[2017-10-06] MEDS ORDERED: LOVENOX 100100 MG/ML SQ (16:31)
[2017-10-06 16:40] LABS: BASO % 0.2 % (0.0-2.0); EOS # 0.1 (0.0-0.7); EOS % 0.3 % (0-4.0); GRAN % 75.7 % (42.2-75.2); HEMATOCRIT 34.5 % (37.0-47.0); HEMOGLOBIN 11.7 g/dl (12.5-16.0); LYMPH % 17.4 % (20.0-51.0); MEAN CELL VOLUME 94 fl (80.0-100.0); MEAN CORPUSCULAR HEMOGLOBIN 32 pg (27.0-31.0); MEAN CORPUSCULAR HGB CONC 34 g/dl (33.0-37.0); MEAN PLATELET VOLUME 10.1 fl (7.4-10.4); MONO % 5.6 % (1.7-9.3); PLATELET COUNT 230 K/mm3 (130-400); RED BLOOD COUNT 3.67 M/mm3 (4.10-5.30); REDCELL DISTRIBUTION WIDTH-CV 12.5 % (11.5-14.5)
[2017-10-06 16:53] LABS: INR 1.2 (0.8-3.0); PROTHROMBIN TIME 13.6 SECONDS (9.7-12.8)
[2017-10-06] MEDS ORDERED: COUMADIN 22.5 MG/TAB PO (16:56)
[2017-10-06 17:20] VITALS: BP 109/80; PULSE 109
[2017-10-07] MEDS ORDERED: PREDNISONE20 MG PO (09:24)
== END 2017-10-06 17:20 | disposition home or self-care (01) ==
LOC: COL.ER 15:35
PROVIDERS: Family Medicine
DX: L50.9 Urticaria, unspecified (principal); I26.99 Other pulmonary embolism without acute cor pulmonale; F41.9 Anxiety disorder, unspecified; I10 Essential (primary) hypertension; Z79.01 Long term (current) use of anticoagulants
CPT/HCPCS: J1650

== ENCOUNTER 2017-10-07 08:48 | Emergency (ER) | payer MEDICAID ==
[~2017-10-07] VITALS: Ht 162.6 cm; Wt 86.4 kg
[~2017-10-07 08:48] MED LIST changes: +COUMADIN 22.5 MG/TAB PO; +LOVENOX 100100 MG/ML SQ
[2017-10-07 08:57] VITALS: BP 113/66; TEMP 99.9
[2017-10-07] MEDS ORDERED: PREDNISONE20 MG PO (09:24)
[2017-10-07 09:28] VITALS: PULSE 136
== END 2017-10-07 09:28 | disposition home or self-care (01) ==
LOC: COL.ER 08:48
DX: L50.9 Urticaria, unspecified (principal); F31.9 Bipolar disorder, unspecified; F41.9 Anxiety disorder, unspecified; F43.10 Post-traumatic stress disorder, unspecified; F12.90 Cannabis use, unspecified, uncomplicated; F17.210 Nicotine dependence, cigarettes, uncomplicated; Z86.711 Personal history of pulmonary embolism; Z88.0 Allergy status to penicillin; Z88.1 Allergy status to other antibiotic agents; Z88.6 Allergy status to analgesic agent; Z90.711 Acquired absence of uterus with remaining cervical stump; Z98.890 Other specified postprocedural states; Z79.01 Long term (current) use of anticoagulants

== ENCOUNTER 2017-10-11 06:12 | Emergency (ER) | payer MEDICAID ==
[~2017-10-11] VITALS: Ht 162.6 cm; Wt 84.1 kg
[~2017-10-11 06:12] MED LIST changes: +PREDNISONE20 MG PO
[2017-10-11 07:48] LABS: COLLECTION METHOD CLEAN CATCH
[2017-10-11 08:06] LABS: PH 7 (5-8); URINE APPEARANCE Clear; URINE BACTERIA Rare /hpf; URINE BILIRUBIN Negative (NEGATIVE); URINE BLOOD 1+ (NEGATIVE); URINE COLOR Straw; URINE GLUCOSE Negative (NEGATIVE); URINE KETONE Negative (NEGATIVE); URINE LEUKOCYTE ESTERASE Negative (NEGATIVE); URINE NITRATE Negative (NEGATIVE); URINE PROTEIN(semi-quant) Negative (NEGATIVE); URINE RBC None Seen /hpf; URINE UROBILINOGEN Negative (NEGATIVE)
[2017-10-11] MEDS ORDERED: ZITHROMAX Z PA250 MG PO (08:47)
[2017-10-11 09:03] VITALS: BP 143/88; PULSE 117; TEMP 101.2
== END 2017-10-11 09:03 | disposition home or self-care (01) ==
LOC: COL.ER 06:12
PROVIDERS: Physician Assistant
DX: R50.9 Fever, unspecified (principal); F31.9 Bipolar disorder, unspecified; F43.10 Post-traumatic stress disorder, unspecified; F12.90 Cannabis use, unspecified, uncomplicated; F17.210 Nicotine dependence, cigarettes, uncomplicated; Z88.0 Allergy status to penicillin; Z98.890 Other specified postprocedural states; Z79.01 Long term (current) use of anticoagulants; Z98.51 Tubal ligation status

== ENCOUNTER 2017-11-13 13:57 | Emergency (ER) | payer MEDICAID ==
[~2017-11-13] VITALS: Ht 162.6 cm; Wt 83.2 kg
[~2017-11-13 13:57] MED LIST changes: +ZITHROMAX Z PA250 MG PO
[2017-11-13 13:59] VITALS: TEMP 99.3
[2017-11-13 14:31] LABS: BASO % 0.3 % (0.0-2.0); EOS # 0.1 (0.0-0.7); EOS % 1.6 % (0-4.0); GRAN # 5.1 (1.4-6.5); GRAN % 58.2 % (42.2-75.2); HEMATOCRIT 40.9 % (37.0-47.0); HEMOGLOBIN 13.9 g/dl (12.5-16.0); LYMPH # 2.9 (1.2-3.4); LYMPH % 32.5 % (20.0-51.0); MEAN CELL VOLUME 90 fl (80.0-100.0); MEAN CORPUSCULAR HEMOGLOBIN 30 pg (27.0-31.0); MEAN CORPUSCULAR HGB CONC 34 g/dl (33.0-37.0); MONO # 0.6 (0.1-0.6); MONO % 6.3 % (1.7-9.3); PLATELET COUNT 277 K/mm3 (130-400); RED BLOOD COUNT 4.57 M/mm3 (4.10-5.30); REDCELL DISTRIBUTION WIDTH-CV 13.2 % (11.5-14.5)
[2017-11-13 14:40] LABS: CALCIUM 9.2 mg/dL (8.4-10.2); CREATININE, serum 0.74 mg/dL (0.52-1.25); POTASSIUM 3.4 mmol/L (3.4-5.0)
[2017-11-13 16:00] VITALS: BP 112/76
[2017-11-13 16:05] LABS: PROTHROMBIN TIME 11.8 SECONDS (9.7-12.8)
[2017-11-13 16:07] LABS: PARTIAL THROMBOPLASTIN TIME 40.3 SECONDS (26.0-37.0)
[2017-11-13 16:18] VITALS: PULSE 102
== END 2017-11-13 16:19 | disposition home or self-care (01) ==
LOC: COL.ER 13:57
PROVIDERS: Physician Assistant
DX: R07.9 Chest pain, unspecified (principal); Z86.711 Personal history of pulmonary embolism; Z79.01 Long term (current) use of anticoagulants; R00.0 Tachycardia, unspecified
CPT/HCPCS: J7030; Q9967

== ENCOUNTER 2017-11-27 14:43 | Emergency (ER) | payer MEDICAID ==
[~2017-11-27] VITALS: Ht 162.6 cm; Wt 84.1 kg
[2017-11-27 14:52] VITALS: TEMP 98.4
[2017-11-27 15:35] LABS: COLLECTION METHOD CLEAN CATCH
[2017-11-27 16:04] LABS: PH 7 (5-8); SQUAMOUS EPITHELIAL 0-2 /hpf; URINE APPEARANCE Clear; URINE BACTERIA Many /hpf; URINE BILIRUBIN Negative (NEGATIVE); URINE BLOOD 1+ (NEGATIVE); URINE COLOR Straw; URINE GLUCOSE Negative (NEGATIVE); URINE KETONE Negative (NEGATIVE); URINE LEUKOCYTE ESTERASE Negative (NEGATIVE); URINE NITRATE Negative (NEGATIVE); URINE PROTEIN(semi-quant) Negative (NEGATIVE); URINE RBC 0-2 /hpf; URINE UROBILINOGEN Negative (NEGATIVE)
[2017-11-27] MEDS ORDERED: ATIVAN 0.50.5 MG/TAB PO (16:57)
[2017-11-27 17:06] VITALS: BP 121/67; PULSE 81
== END 2017-11-27 17:06 | disposition home or self-care (01) ==
LOC: COL.ER 14:43
PROVIDERS: Emergency Medicine
DX: F41.9 Anxiety disorder, unspecified (principal); R07.89 Other chest pain; I10 Essential (primary) hypertension; Z98.51 Tubal ligation status; Z90.710 Acquired absence of both cervix and uterus; F17.210 Nicotine dependence, cigarettes, uncomplicated; Z86.711 Personal history of pulmonary embolism

== ENCOUNTER 2017-12-23 21:18 | Emergency (ER) | payer MEDICAID ==
[~2017-12-23] VITALS: Ht 162.6 cm; Wt 75.0 kg
[2017-12-23 21:21] VITALS: TEMP 98.8
[2017-12-23 22:06] LABS: BASO # 0.1 (0.0-0.2); BASO % 0.3 % (0.0-2.0); EOS # 0.1 (0.0-0.7); EOS % 0.8 % (0-4.0); GRAN # 9.9 (1.4-6.5); GRAN % 67.3 % (42.2-75.2); HEMATOCRIT 38.4 % (37.0-47.0); HEMOGLOBIN 13.4 g/dl (12.5-16.0); LYMPH # 3.6 (1.2-3.4); LYMPH % 24.3 % (20.0-51.0); MEAN CELL VOLUME 87 fl (80.0-100.0); MEAN CORPUSCULAR HEMOGLOBIN 31 pg (27.0-31.0); MEAN CORPUSCULAR HGB CONC 35 g/dl (33.0-37.0); MEAN PLATELET VOLUME 9.9 fl (7.4-10.4); MONO # 0.9 (0.1-0.6); MONO % 6.2 % (1.7-9.3); PLATELET COUNT 310 K/mm3 (130-400)
[2017-12-23 22:19] LABS: ALBUMIN 4.3 gm/dL (3.5-5.0); BILIRUBIN,TOTAL 0.4 mg/dL (0.0-1.0); C-REACTIVE PROTEIN 0.8 mg/dL (0.0-0.9); CALCIUM 9.6 mg/dL (8.4-10.2); CREATININE, serum 0.76 mg/dL (0.52-1.25); POTASSIUM 3.6 mmol/L (3.4-5.0); TOTAL PROTEIN 7.8 gm/dL (6.4-8.2)
[2017-12-23 22:38] LABS: COLLECTION METHOD CLEAN CATCH
[2017-12-23 22:49] LABS: AMORPHOUS CRYSTAL Present /uL; HYALINE CAST >12 /lpf; MUCOUS Present /lpf; PH 5 (5-8); URINE APPEARANCE Cloudy; URINE BACTERIA Many /hpf; URINE BILIRUBIN Negative (NEGATIVE); URINE BLOOD 1+ (NEGATIVE); URINE COLOR Yellow; URINE GLUCOSE Negative (NEGATIVE); URINE KETONE Negative (NEGATIVE); URINE LEUKOCYTE ESTERASE Negative (NEGATIVE); URINE NITRATE Negative (NEGATIVE); URINE PROTEIN(semi-quant) Negative (NEGATIVE); URINE UROBILINOGEN Negative (NEGATIVE)
[2017-12-23] MEDS ORDERED: OMNICEF 300MG300 MG PO (22:59)
[2017-12-23 23:17] VITALS: BP 149/89; PULSE 108
== END 2017-12-23 23:25 | disposition home or self-care (01) ==
LOC: COL.ER 21:18
PROVIDERS: Emergency Medicine
DX: F41.9 Anxiety disorder, unspecified (principal); N39.0 Urinary tract infection, site not specified; R51 Headache; F32.9 Major depressive disorder, single episode, unspecified; F17.210 Nicotine dependence, cigarettes, uncomplicated; Z86.711 Personal history of pulmonary embolism
CPT/HCPCS: J1170; J2060; J2405

== ENCOUNTER 2018-01-17 20:07 | Emergency (ER) | payer MEDICAID ==
[~2018-01-17] VITALS: Ht 162.6 cm; Wt 75.0 kg
[~2018-01-17 20:07] MED LIST changes: +OMNICEF 300MG300 MG PO
[2018-01-17 20:14] VITALS: BP 147/93; TEMP 98.5
[2018-01-17 20:45] LABS: COLLECTION METHOD CLEAN CATCH
[2018-01-17 20:56] LABS: BASO # 0.1 (0.0-0.2); BASO % 0.4 % (0.0-2.0); EOS # 0.1 (0.0-0.7); EOS % 0.5 % (0-4.0); GRAN # 8.8 (1.4-6.5); GRAN % 67.6 % (42.2-75.2); HEMATOCRIT 41.2 % (37.0-47.0); HEMOGLOBIN 14.1 g/dl (12.5-16.0); LYMPH # 3.3 (1.2-3.4); LYMPH % 25.3 % (20.0-51.0); MEAN CELL VOLUME 86 fl (80.0-100.0); MEAN CORPUSCULAR HEMOGLOBIN 30 pg (27.0-31.0); MEAN CORPUSCULAR HGB CONC 34 g/dl (33.0-37.0); MEAN PLATELET VOLUME 10.1 fl (7.4-10.4); MONO # 0.7 (0.1-0.6); MONO % 5.4 % (1.7-9.3); PLATELET COUNT 360 K/mm3 (130-400); RED BLOOD COUNT 4.77 M/mm3 (4.10-5.30); REDCELL DISTRIBUTION WIDTH-CV 13.2 % (11.5-14.5)
[2018-01-17 20:59] LABS: PH 6 (5-8); URINE APPEARANCE Hazy; URINE BACTERIA Many /hpf; URINE BILIRUBIN Negative (NEGATIVE); URINE BLOOD 1+ (NEGATIVE); URINE COLOR Straw; URINE GLUCOSE Negative (NEGATIVE); URINE KETONE Negative (NEGATIVE); URINE LEUKOCYTE ESTERASE Negative (NEGATIVE); URINE NITRATE Negative (NEGATIVE); URINE PROTEIN(semi-quant) Negative (NEGATIVE); URINE RBC 0-2 /hpf; URINE UROBILINOGEN Negative (NEGATIVE)
[2018-01-17 21:06] LABS: ALBUMIN 4.3 gm/dL (3.5-5.0); BILIRUBIN,TOTAL 0.3 mg/dL (0.0-1.0); C-REACTIVE PROTEIN 1.1 mg/dL (0.0-0.9); CALCIUM 9.6 mg/dL (8.4-10.2); CREATININE, serum 0.76 mg/dL (0.52-1.25); POTASSIUM 3.7 mmol/L (3.4-5.0)
[2018-01-17 22:40] VITALS: PULSE 92
[2018-01-17] MEDS ORDERED: XARELTO20 MG PO (22:42)
[2018-01-17] MEDS ORDERED: TOPROL XL 50MG50 MG PO (22:43)
== END 2018-01-17 22:13 | disposition home or self-care (01) ==
LOC: COL.ER 20:07
PROVIDERS: Family Medicine
DX: R10.31 Right lower quadrant pain (principal); Z87.42 Personal history of other diseases of the female genital tract
CPT/HCPCS: J2270; J2405; J7030; Q9967

== ENCOUNTER 2018-01-18 14:51 | Emergency (ER) | payer MEDICAID ==
[~2018-01-18] VITALS: Ht 162.6 cm; Wt 75.0 kg
[~2018-01-18 14:51] MED LIST changes: +XARELTO20 MG PO
[2018-01-18 14:58] VITALS: BP 137/95; PULSE 105; TEMP 98.7
[2018-01-18 15:10] LABS: COLLECTION METHOD CLEAN CATCH
[2018-01-18 15:23] LABS: MUCOUS Present /lpf; PH 6 (5-8); URINE APPEARANCE Clear; URINE BACTERIA Rare /hpf; URINE BILIRUBIN Negative (NEGATIVE); URINE BLOOD 2+ (NEGATIVE); URINE COLOR Yellow; URINE GLUCOSE 1+ (NEGATIVE); URINE KETONE Negative (NEGATIVE); URINE LEUKOCYTE ESTERASE Negative (NEGATIVE); URINE NITRATE Negative (NEGATIVE); URINE PROTEIN(semi-quant) Negative (NEGATIVE); URINE RBC 0-2 /hpf; URINE UROBILINOGEN Negative (NEGATIVE)
== END 2018-01-18 16:00 | disposition left against medical advice (07) ==
LOC: COL.ER 14:51
PROVIDERS: Physician Assistant
DX: R10.31 Right lower quadrant pain (principal); Z88.0 Allergy status to penicillin; Z88.6 Allergy status to analgesic agent

== ENCOUNTER → 2018-01-29 | Outpatient (CLI) | payer MEDICAID ==
[2005-08-04 07:15] VITALS: TEMP 97.9
== END ==
LOC: COL.LAB 14:53
DX: R30.0 Dysuria (principal)

== ENCOUNTER → 2018-01-30 | Emergency (ER) | payer MEDICAID | LOC: COL.ER 15:59 | DX: Z72.89 Other problems related to lifestyle (principal) ==

== ENCOUNTER 2018-04-25 22:05 | Emergency (ER) | payer MEDICAID ==
[~2018-04-25] VITALS: Ht 162.6 cm; Wt 79.5 kg
[2018-04-25 22:09] VITALS: TEMP 98.1
[2018-04-25 22:31] LABS: COLLECTION METHOD CLEAN CATCH
[2018-04-25 22:36] LABS: BASO % 0.5 % (0.0-2.0); EOS # 0.3 (0.0-0.7); EOS % 3.2 % (0-4.0); GRAN # 4.5 (1.4-6.5); HEMATOCRIT 38.1 % (37.0-47.0); LYMPH # 2.2 (1.2-3.4); LYMPH % 28.3 % (20.0-51.0); MEAN CELL VOLUME 85 fl (80.0-100.0); MEAN CORPUSCULAR HEMOGLOBIN 29 pg (27.0-31.0); MEAN CORPUSCULAR HGB CONC 34 g/dl (33.0-37.0); MEAN PLATELET VOLUME 9.9 fl (7.4-10.4); MONO # 0.7 (0.1-0.6); MONO % 9.1 % (1.7-9.3); PLATELET COUNT 318 K/mm3 (130-400); RED BLOOD COUNT 4.46 M/mm3 (4.10-5.30); REDCELL DISTRIBUTION WIDTH-CV 13.7 % (11.5-14.5)
[2018-04-25 22:44] LABS: MUCOUS Present /lpf; PH 6 (5-8); URINE APPEARANCE Hazy; URINE BACTERIA Rare /hpf; URINE BILIRUBIN Negative (NEGATIVE); URINE BLOOD 1+ (NEGATIVE); URINE COLOR Yellow; URINE GLUCOSE Negative (NEGATIVE); URINE KETONE Trace (NEGATIVE); URINE LEUKOCYTE ESTERASE 2+ (NEGATIVE); URINE NITRATE Negative (NEGATIVE); URINE PROTEIN(semi-quant) Negative (NEGATIVE); URINE UROBILINOGEN Negative (NEGATIVE)
[2018-04-25 22:48] LABS: ALBUMIN 4.1 gm/dL (3.5-5.0); BILIRUBIN,TOTAL 0.4 mg/dL (0.0-1.0); CALCIUM 9.2 mg/dL (8.4-10.2); CREATININE, serum 0.71 mg/dL (0.52-1.25); POTASSIUM 3.4 mmol/L (3.4-5.0); TOTAL PROTEIN 7.4 gm/dL (6.4-8.2)
[2018-04-25] MEDS ORDERED: MACROBID 1100 MG/CAP PO (23:12)
[2018-04-26 00:35] VITALS: BP 133/73; PULSE 92
== END 2018-04-26 00:37 | disposition home or self-care (01) ==
LOC: COL.ER 22:05
PROVIDERS: Family Medicine
DX: N39.0 Urinary tract infection, site not specified (principal); E86.0 Dehydration; F41.9 Anxiety disorder, unspecified; F32.9 Major depressive disorder, single episode, unspecified; Z90.710 Acquired absence of both cervix and uterus; Z98.51 Tubal ligation status; Z87.891 Personal history of nicotine dependence; Z86.711 Personal history of pulmonary embolism
CPT/HCPCS: A4216; J0696; J2060; J7030

== ENCOUNTER 2018-04-26 21:12 | Emergency (ER) | payer MEDICAID ==
[~2018-04-26] VITALS: Ht 162.6 cm; Wt 79.5 kg
[~2018-04-26 21:12] MED LIST changes: +MACROBID 1100 MG/CAP PO
[2018-04-26 21:28] VITALS: TEMP 97.6
[2018-04-26 21:53] LABS: COLLECTION METHOD CLEAN CATCH
[2018-04-26 21:57] LABS: BASO # 0.1 (0.0-0.2); BASO % 0.7 % (0.0-2.0); EOS # 0.3 (0.0-0.7); EOS % 3.9 % (0-4.0); GRAN # 3.7 (1.4-6.5); GRAN % 49.5 % (42.2-75.2); HEMOGLOBIN 12.4 g/dl (12.5-16.0); LYMPH # 2.7 (1.2-3.4); LYMPH % 36.4 % (20.0-51.0); MEAN CELL VOLUME 86 fl (80.0-100.0); MEAN CORPUSCULAR HEMOGLOBIN 30 pg (27.0-31.0); MEAN CORPUSCULAR HGB CONC 34 g/dl (33.0-37.0); MONO # 0.6 (0.1-0.6); MONO % 8.4 % (1.7-9.3); PLATELET COUNT 321 K/mm3 (130-400); RED BLOOD COUNT 4.19 M/mm3 (4.10-5.30)
[2018-04-26 22:02] LABS: MUCOUS Present /lpf; PH 5 (5-8); URINE APPEARANCE Hazy; URINE BACTERIA None Seen /hpf; URINE BILIRUBIN Negative (NEGATIVE); URINE BLOOD Negative (NEGATIVE); URINE COLOR Yellow; URINE GLUCOSE Negative (NEGATIVE); URINE KETONE Negative (NEGATIVE); URINE LEUKOCYTE ESTERASE 2+ (NEGATIVE); URINE NITRATE Negative (NEGATIVE); URINE PROTEIN(semi-quant) Negative (NEGATIVE); URINE UROBILINOGEN Negative (NEGATIVE)
[2018-04-26 22:10] LABS: ALBUMIN 3.8 gm/dL (3.5-5.0); BILIRUBIN,TOTAL 0.2 mg/dL (0.0-1.0); C-REACTIVE PROTEIN 1.9 mg/dL (0.0-0.9); CALCIUM 8.8 mg/dL (8.4-10.2); CREATININE, serum 0.77 mg/dL (0.52-1.25); POTASSIUM 3.6 mmol/L (3.4-5.0)
[2018-04-26 23:07] VITALS: BP 128/73; PULSE 86
== END 2018-04-26 23:14 | disposition home or self-care (01) ==
LOC: COL.ER 21:12
PROVIDERS: Physician Assistant
DX: N39.0 Urinary tract infection, site not specified (principal); F17.210 Nicotine dependence, cigarettes, uncomplicated
CPT/HCPCS: J3010; J7030

== ENCOUNTER 2018-05-22 06:40 | Emergency (ER) | payer MEDICAID ==
[~2018-05-22] VITALS: Ht 162.6 cm; Wt 68.2 kg
[2018-05-22 06:41] VITALS: TEMP 98.2
[2018-05-22 06:52] LABS: BASO # 0.1 (0.0-0.2); BASO % 0.4 % (0.0-2.0); EOS # 0.1 (0.0-0.7); EOS % 0.7 % (0-4.0); GRAN # 11.2 (1.4-6.5); GRAN % 68.4 % (42.2-75.2); HEMATOCRIT 43.9 % (37.0-47.0); HEMOGLOBIN 15.3 g/dl (12.5-16.0); LYMPH % 24.2 % (20.0-51.0); MEAN CELL VOLUME 85 fl (80.0-100.0); MEAN CORPUSCULAR HEMOGLOBIN 30 pg (27.0-31.0); MEAN CORPUSCULAR HGB CONC 35 g/dl (33.0-37.0); MEAN PLATELET VOLUME 9.6 fl (7.4-10.4); MONO # 0.9 (0.1-0.6); MONO % 5.5 % (1.7-9.3); PLATELET COUNT 369 K/mm3 (130-400); RED BLOOD COUNT 5.15 M/mm3 (4.10-5.30); REDCELL DISTRIBUTION WIDTH-CV 14.1 % (11.5-14.5)
[2018-05-22 07:00] LABS: INR 1.1 (0.8-3.0); PARTIAL THROMBOPLASTIN TIME 37.4 SECONDS (26.0-37.0); PROTHROMBIN TIME 12.2 SECONDS (9.7-12.8)
[2018-05-22 07:09] LABS: ALBUMIN 4.5 gm/dL (3.5-5.0); BILIRUBIN,TOTAL 0.5 mg/dL (0.0-1.0); CALCIUM 9.6 mg/dL (8.4-10.2); CREATININE, serum 0.65 mg/dL (0.52-1.25); POTASSIUM 3.6 mmol/L (3.4-5.0); TOTAL PROTEIN 8.2 gm/dL (6.4-8.2)
[2018-05-22 07:26] LABS: COLLECTION METHOD CLEAN CATCH
[2018-05-22 07:35] LABS: AMORPHOUS CRYSTAL Present /uL; MUCOUS Present /lpf; PH 6 (5-8); URINE APPEARANCE Hazy; URINE BACTERIA Rare /hpf; URINE BILIRUBIN Negative (NEGATIVE); URINE BLOOD Negative (NEGATIVE); URINE COLOR Yellow; URINE GLUCOSE Negative (NEGATIVE); URINE KETONE Trace (NEGATIVE); URINE LEUKOCYTE ESTERASE Negative (NEGATIVE); URINE NITRATE Negative (NEGATIVE); URINE PROTEIN(semi-quant) Negative (NEGATIVE); URINE RBC 0-2 /hpf
[2018-05-22 07:39] LABS: TSH w REFLEX 1.58 uIU/mL (0.465-4.680)
[2018-05-22 08:35] LABS: TRICYCLIC ANTIDEPRESS URINE NEGATIVE
[2018-05-22] MEDS ORDERED: MACROBID 1100 MG/CAP PO (08:48)
[2018-05-22 09:07] VITALS: BP 122/92; PULSE 88
== END 2018-05-22 09:09 | disposition home or self-care (01) ==
LOC: COL.ER 06:40
PROVIDERS: Emergency Medicine
DX: R00.2 Palpitations (principal); F17.210 Nicotine dependence, cigarettes, uncomplicated; Z86.711 Personal history of pulmonary embolism; Z90.710 Acquired absence of both cervix and uterus
CPT/HCPCS: J1170; J2060; J7030

== ENCOUNTER 2018-10-18 18:47 | Emergency (ER) | payer MEDICAID ==
[~2018-10-18] VITALS: Ht 162.6 cm; Wt 84.1 kg
[2018-10-18 18:58] VITALS: TEMP 98.5
[2018-10-18 19:12] LABS: COLLECTION METHOD CLEAN CATCH
[2018-10-18 19:20] LABS: AMORPHOUS CRYSTAL Present /uL; PH 6 (5-8); SQUAMOUS EPITHELIAL 20-50 /hpf; URINE APPEARANCE Cloudy; URINE BACTERIA Occasional /hpf; URINE BILIRUBIN Negative (NEGATIVE); URINE BLOOD Negative (NEGATIVE); URINE COLOR Yellow; URINE GLUCOSE Negative (NEGATIVE); URINE KETONE Negative (NEGATIVE); URINE LEUKOCYTE ESTERASE Negative (NEGATIVE); URINE NITRATE Negative (NEGATIVE); URINE PROTEIN(semi-quant) Negative (NEGATIVE); URINE RBC 0-2 /hpf; URINE UROBILINOGEN Negative (NEGATIVE)
[2018-10-18 20:49] LABS: COLLECTION METHOD CLEAN CATCH
[2018-10-18 20:55] LABS: BASO # 0.1 (0.0-0.2); BASO % 0.6 % (0.0-2.0); EOS # 0.2 (0.0-0.7); EOS % 2.1 % (0-4.0); GRAN # 4.4 (1.4-6.5); GRAN % 53.3 % (42.2-75.2); HEMATOCRIT 42.4 % (37.0-47.0); HEMOGLOBIN 14.2 g/dl (12.5-16.0); LYMPH # 3.1 (1.2-3.4); LYMPH % 38.1 % (20.0-51.0); MEAN CELL VOLUME 92 fl (80.0-100.0); MEAN CORPUSCULAR HEMOGLOBIN 31 pg (27.0-31.0); MEAN CORPUSCULAR HGB CONC 34 g/dl (33.0-37.0); MONO # 0.5 (0.1-0.6); MONO % 5.5 % (1.7-9.3); PLATELET COUNT 280 K/mm3 (130-400); RED BLOOD COUNT 4.59 M/mm3 (4.10-5.30); REDCELL DISTRIBUTION WIDTH-CV 12.9 % (11.5-14.5)
[2018-10-18 20:57] LABS: MUCOUS Present /lpf; PH 7 (5-8); URINE APPEARANCE Clear; URINE BACTERIA None Seen /hpf; URINE BILIRUBIN Negative (NEGATIVE); URINE BLOOD Negative (NEGATIVE); URINE COLOR Straw; URINE GLUCOSE Negative (NEGATIVE); URINE KETONE Negative (NEGATIVE); URINE LEUKOCYTE ESTERASE Negative (NEGATIVE); URINE NITRATE Negative (NEGATIVE); URINE PROTEIN(semi-quant) Negative (NEGATIVE); URINE RBC 0-2 /hpf; URINE UROBILINOGEN Negative (NEGATIVE)
[2018-10-18 21:10] LABS: ALBUMIN 3.6 gm/dL (3.5-5.0); BILIRUBIN,TOTAL 0.2 mg/dL (0.0-1.0); CALCIUM 9.1 mg/dL (8.4-10.2); CREATININE, serum 0.74 (0.52-1.25); POTASSIUM 3.8 mmol/L (3.4-5.0); TOTAL PROTEIN 6.9 gm/dL (6.4-8.2)
[2018-10-18 21:21] LABS: C-REACTIVE PROTEIN 0.5 mg/dL (0.0-0.9)
[2018-10-18] MEDS ORDERED: ZOFRAN ODT4 MG PO (22:37)
[2018-10-18] MEDS ORDERED: FLAGYL500 MG PO (22:37)
[2018-10-18 22:50] VITALS: BP 130/88; PULSE 81
== END 2018-10-18 22:51 | disposition home or self-care (01) ==
LOC: COL.ER 18:47
PROVIDERS: Emergency Medicine; Physician Assistant
DX: R11.2 Nausea with vomiting, unspecified (principal); N76.0 Acute vaginitis; B96.89 Other specified bacterial agents as the cause of diseases classified elsewhere; Z98.51 Tubal ligation status; F17.210 Nicotine dependence, cigarettes, uncomplicated
CPT/HCPCS: J2405; J3010; J7030

== ENCOUNTER 2018-11-25 15:16 | Emergency (ER) | payer MEDICAID ==
[~2018-11-25] VITALS: Ht 162.6 cm; Wt 77.3 kg
[~2018-11-25 15:16] MED LIST changes: +ZOFRAN ODT4 MG PO
[2018-11-25 15:26] VITALS: TEMP 98.6
[2018-11-25 16:09] LABS: BASO # 0.1 (0.0-0.2); BASO % 0.4 % (0.0-2.0); EOS # 0.1 (0.0-0.7); EOS % 0.8 % (0-4.0); GRAN % 67.6 % (42.2-75.2); HEMATOCRIT 43.8 % (37.0-47.0); HEMOGLOBIN 15.2 g/dl (12.5-16.0); LYMPH # 3.1 (1.2-3.4); LYMPH % 23.4 % (20.0-51.0); MEAN CELL VOLUME 88 fl (80.0-100.0); MEAN CORPUSCULAR HEMOGLOBIN 31 pg (27.0-31.0); MEAN CORPUSCULAR HGB CONC 35 g/dl (33.0-37.0); MEAN PLATELET VOLUME 10.2 fl (7.4-10.4); MONO # 0.9 (0.1-0.6); MONO % 6.9 % (1.7-9.3); PLATELET COUNT 347 K/mm3 (130-400); RED BLOOD COUNT 4.98 M/mm3 (4.10-5.30); REDCELL DISTRIBUTION WIDTH-CV 12.5 % (11.5-14.5)
[2018-11-25] MEDS ORDERED: INDERAL 10MG10 MG PO (16:15)
[2018-11-25 16:17] LABS: ALANINE AMINOTRANSFERASE < 6 U/L (9-52); ALBUMIN 4.4 gm/dL (3.5-5.0); ALKALINE PHOSPHATASE 101 U/L (50-136); ANION GAP 12 mmol/L (7-16); AST,SGOT 30 U/L (15-37); BILIRUBIN,TOTAL 0.9 mg/dL (0.0-1.0); BLOOD UREA NITROGEN 10 mg/dL (7-17); CARBON DIOXIDE 26 mmol/L (22-30); CHLORIDE 100 mmol/L (98-107); GLUCOSE 113 mg/dL (74-106); POTASSIUM 3.9 mmol/L (3.4-5.0); SODIUM 138 mmol/L (137-145); TOTAL PROTEIN 8.2 gm/dL (6.4-8.2)
[2018-11-25 16:27] LABS: TROPONIN-I < 0.012 ng/mL (0.000-0.035)
[2018-11-25 16:46] LABS: COLLECTION METHOD CLEAN CATCH
[2018-11-25 16:58] LABS: MUCOUS Present /lpf; PH 6 (5-8); URINE APPEARANCE Hazy; URINE BACTERIA None Seen /hpf; URINE BILIRUBIN Negative (NEGATIVE); URINE BLOOD 1+ (NEGATIVE); URINE COLOR Yellow; URINE GLUCOSE Negative (NEGATIVE); URINE KETONE 1+ (NEGATIVE); URINE LEUKOCYTE ESTERASE Negative (NEGATIVE); URINE NITRATE Negative (NEGATIVE); URINE PROTEIN(semi-quant) Negative (NEGATIVE); URINE RBC 0-2 /hpf; URINE UROBILINOGEN Negative (NEGATIVE)
[2018-11-25 17:08] LABS: TRICYCLIC ANTIDEPRESS URINE NEGATIVE
[2018-11-25 19:15] VITALS: BP 119/84; PULSE 101
== END 2018-11-25 19:15 | disposition home or self-care (01) ==
LOC: COL.ER 15:16
PROVIDERS: Physician Assistant
DX: R00.2 Palpitations (principal); F17.210 Nicotine dependence, cigarettes, uncomplicated; F12.90 Cannabis use, unspecified, uncomplicated; Z98.51 Tubal ligation status; Z90.710 Acquired absence of both cervix and uterus
CPT/HCPCS: J1630; J1885; J2060; J7030

== ENCOUNTER 2019-04-08 12:49 | Emergency (ER) | payer MEDICAID ==
[~2019-04-08] VITALS: Ht 162.6 cm; Wt 72.7 kg
[~2019-04-08 12:49] MED LIST changes: +INDERAL 10MG10 MG PO
[2019-04-08 12:56] VITALS: BP 153/82
[2019-04-08] MEDS ORDERED: ZITHROMAX Z PA250 MG PO (14:39)
[2019-04-08] MEDS ORDERED: PREDNISONE20 MG PO (14:39)
[2019-04-08 15:25] VITALS: PULSE 85; TEMP 98.6
== END 2019-04-08 15:30 | disposition home or self-care (01) ==
LOC: COL.ER 12:49
DX: J45.909 Unspecified asthma, uncomplicated (principal); F31.9 Bipolar disorder, unspecified; F43.10 Post-traumatic stress disorder, unspecified; G89.29 Other chronic pain; F17.210 Nicotine dependence, cigarettes, uncomplicated; Z86.711 Personal history of pulmonary embolism

== ENCOUNTER 2019-05-23 11:17 | Emergency (ER) | payer MEDICAID ==
[~2019-05-23] VITALS: Ht 162.6 cm; Wt 72.7 kg
[2019-05-23 11:22] VITALS: BP 138/93; TEMP 97.6
[2019-05-23] MEDS ORDERED: ATARAX 25MG25 MG/TAB PO (11:47)
[2019-05-23 12:12] VITALS: PULSE 80
== END 2019-05-23 12:12 | disposition home or self-care (01) ==
LOC: COL.ER 11:17
DX: F41.9 Anxiety disorder, unspecified (principal); I10 Essential (primary) hypertension; F32.9 Major depressive disorder, single episode, unspecified; F17.210 Nicotine dependence, cigarettes, uncomplicated; Z90.710 Acquired absence of both cervix and uterus; Z98.51 Tubal ligation status

== ENCOUNTER 2019-06-02 17:32 | Emergency (ER) | payer MEDICAID ==
[~2019-06-02] VITALS: Ht 162.6 cm; Wt 70.5 kg
[~2019-06-02 17:32] MED LIST changes: +ATARAX 25MG25 MG/TAB PO
[2019-06-02 17:51] VITALS: BP 133/88; PULSE 91; TEMP 97.7
[2019-06-02 18:01] LABS: COLLECTION METHOD CLEAN CATCH
[2019-06-02 18:18] LABS: PH 6 (5-8); SQUAMOUS EPITHELIAL 0-2 /hpf; URINE APPEARANCE Clear; URINE BACTERIA Rare /hpf; URINE BILIRUBIN Negative (NEGATIVE); URINE BLOOD Negative (NEGATIVE); URINE COLOR Colorless; URINE GLUCOSE Negative (NEGATIVE); URINE KETONE Negative (NEGATIVE); URINE LEUKOCYTE ESTERASE Negative (NEGATIVE); URINE NITRATE Negative (NEGATIVE); URINE PROTEIN(semi-quant) Negative (NEGATIVE); URINE RBC 0-2 /hpf; URINE UROBILINOGEN Negative (NEGATIVE)
== END 2019-06-02 20:09 | disposition left against medical advice (07) ==
LOC: COL.ER 17:32
PROVIDERS: Family Medicine
DX: F41.9 Anxiety disorder, unspecified (principal); R10.9 Unspecified abdominal pain

== ENCOUNTER 2019-06-03 23:22 | Emergency (ER) | payer MEDICAID ==
[~2019-06-03] VITALS: Ht 162.6 cm; Wt 70.5 kg
[2019-06-03 23:28] VITALS: TEMP 98.4
[2019-06-03 23:41] LABS: COLLECTION METHOD CLEAN CATCH
[2019-06-03 23:46] LABS: MUCOUS Present /lpf; PH 6 (5-8); URINE APPEARANCE Clear; URINE BACTERIA Rare /hpf; URINE BILIRUBIN Negative (NEGATIVE); URINE BLOOD Negative (NEGATIVE); URINE COLOR Yellow; URINE GLUCOSE Negative (NEGATIVE); URINE KETONE Negative (NEGATIVE); URINE LEUKOCYTE ESTERASE Negative (NEGATIVE); URINE NITRATE Negative (NEGATIVE); URINE PROTEIN(semi-quant) Negative (NEGATIVE); URINE RBC 0-2 /hpf; URINE UROBILINOGEN Negative (NEGATIVE)
[2019-06-04 00:12] LABS: BASO # 0.1 (0.0-0.2); BASO % 0.5 % (0.0-2.0); EOS # 0.2 (0.0-0.7); GRAN % 61.7 % (42.2-75.2); HEMATOCRIT 40.8 % (37.0-47.0); HEMOGLOBIN 13.9 g/dl (12.5-16.0); LYMPH # 3.3 (1.2-3.4); LYMPH % 28.7 % (20.0-51.0); MEAN CELL VOLUME 93 fl (80.0-100.0); MEAN CORPUSCULAR HEMOGLOBIN 32 pg (27.0-31.0); MEAN CORPUSCULAR HGB CONC 34 g/dl (33.0-37.0); MEAN PLATELET VOLUME 9.8 fl (7.4-10.4); MONO # 0.7 (0.1-0.6); MONO % 6.2 % (1.7-9.3); PLATELET COUNT 244 K/mm3 (130-400); RED BLOOD COUNT 4.37 M/mm3 (4.10-5.30); REDCELL DISTRIBUTION WIDTH-CV 12.5 % (11.5-14.5)
[2019-06-04 00:19] LABS: ALBUMIN 3.7 gm/dL (3.5-5.0); BILIRUBIN,TOTAL 0.1 mg/dL (0.0-1.0); CALCIUM 8.9 mg/dL (8.4-10.2); CREATININE, serum 0.74 (0.52-1.25); POTASSIUM 3.8 mmol/L (3.4-5.0); TOTAL PROTEIN 6.6 gm/dL (6.4-8.2)
[2019-06-04 01:43] VITALS: BP 118/83; PULSE 85
== END 2019-06-04 01:45 | disposition home or self-care (01) ==
LOC: COL.ER 23:22
PROVIDERS: Emergency Medicine
DX: N83.201 Unspecified ovarian cyst, right side (principal); I10 Essential (primary) hypertension; Z90.710 Acquired absence of both cervix and uterus; Z98.51 Tubal ligation status
CPT/HCPCS: J2765; J3010; J7030; Q9967

== ENCOUNTER 2020-06-22 00:42 | Emergency (ER) | payer MEDICAID ==
[~2020-06-22] VITALS: Ht 162.6 cm; Wt 68.2 kg
[2020-06-22 00:52] VITALS: TEMP 98.4
[2020-06-22 01:35] VITALS: BP 140/85; PULSE 72
== END 2020-06-22 01:35 | disposition home or self-care (01) ==
LOC: COL.ER 00:42
DX: K04.7 Periapical abscess without sinus (principal); Z88.0 Allergy status to penicillin; Z88.1 Allergy status to other antibiotic agents; Z88.8 Allergy status to other drugs, medicaments and biological substances; Z87.891 Personal history of nicotine dependence
CPT/HCPCS: J1170; J2550; J8540

== ENCOUNTER 2020-11-19 14:03 | Emergency (ER) | payer MEDICAID ==
[~2020-11-19] VITALS: Ht 162.6 cm; Wt 70.5 kg
[2020-11-19 14:18] VITALS: BP 154/90
[2020-11-19 14:38] LABS: COLLECTION METHOD CLEAN CATCH
[2020-11-19 14:51] LABS: PH 6 (5-8); SQUAMOUS EPITHELIAL 0-2 /hpf; URINE APPEARANCE Clear; URINE BACTERIA None Seen /hpf; URINE BILIRUBIN Negative (NEGATIVE); URINE BLOOD Negative (NEGATIVE); URINE GLUCOSE Negative (NEGATIVE); URINE KETONE Negative (NEGATIVE); URINE LEUKOCYTE ESTERASE Negative (NEGATIVE); URINE NITRATE Positive (NEGATIVE); URINE PROTEIN(semi-quant) Negative (NEGATIVE); URINE RBC 0-2 /hpf; URINE UROBILINOGEN Negative (NEGATIVE)
[2020-11-19 14:52] LABS: URINE COLOR Yellow
[2020-11-19 15:26] VITALS: PULSE 71
== END 2020-11-19 15:27 | disposition home or self-care (01) ==
LOC: COL.ER 14:03
PROVIDERS: Nurse Practitioner
DX: M54.5 Low back pain (principal); Z87.891 Personal history of nicotine dependence

== ENCOUNTER 2022-12-05 12:57 | Emergency (ER) | payer MEDICAID ==
[~2022-12-05] VITALS: Ht 162.6 cm; Wt 81.8 kg
[2022-12-05 13:00] VITALS: TEMP 98.1
[2022-12-05 13:38] LABS: COLLECTION METHOD CLEAN CATCH
[2022-12-05 13:43] LABS: SQUAMOUS EPITHELIAL 0-2 /hpf (0-10); URINE BACTERIA Rare /hpf (NONE SEEN); URINE RBC 0-2 /hpf (0-2)
[2022-12-05] MEDS ORDERED: NS 1,000 ML IV ONE (13:45)
[2022-12-05 13:51] LABS: URINE APPEARANCE Clear (CLEAR/HAZY); URINE BLOOD Negative (NEGATIVE); URINE COLOR Colorless (YELLOW); URINE GLUCOSE Negative (NEGATIVE); URINE KETONE Negative (NEGATIVE); URINE NITRATE Negative (NEGATIVE); URINE PROTEIN(semi-quant) Negative (NEGATIVE); URINE UROBILINOGEN 0.2 E.U/dL (0.2-1.0)
[2022-12-05 13:54] LABS: BASO # 0.1 K/mm3 (0.0-0.2); BASO % 0.8 % (0.0-2.0); EOS # 0.2 K/mm3 (0.0-0.7); EOS % 3.4 % (0.0-4.0); GRAN # 3.4 K/mm3 (1.4-6.5); GRAN % 51.3 % (42.2-75.2); HEMOGLOBIN 14.6 g/dl (12.5-16.0); LYMPH # 2.4 K/mm3 (1.2-3.4); MEAN CELL VOLUME 93 fl (80.0-100.0); MEAN CORPUSCULAR HEMOGLOBIN 31 pg (27-31); MEAN CORPUSCULAR HGB CONC 33 g/dl (33.0-37.0); MEAN PLATELET VOLUME 9.5 fl (7.4-10.4); MONO # 0.5 K/mm3 (0.1-0.6); MONO % 7.6 % (1.7-9.3); PLATELET COUNT 292 K/mm3 (130-400); RED BLOOD COUNT 4.73 M/mm3 (4.10-5.30); REDCELL DISTRIBUTION WIDTH-CV 12.7 % (11.5-14.5)
[2022-12-05 14:12] LABS: ALBUMIN 3.9 gm/dL (3.5-5.0); BILIRUBIN,TOTAL 0.3 mg/dL (0.2-1.2); CALCIUM 9.6 mg/dL (8.4-10.2); CREATININE, serum 0.82 mg/dL (0.57-1.11); POTASSIUM 4.4 mmol/L (3.5-4.5); TOTAL PROTEIN 7.5 gm/dL (6.2-8.1)
[2022-12-05] MEDS ORDERED: Ketorolac 15 MG/ML VIAL IV ONE (14:45)
[2022-12-05] MEDS ORDERED: PERCOCET 325 MG1 TA2 PO (14:51)
[2022-12-05 15:23] VITALS: BP 116/86; PULSE 79
[2023-02-17] MEDS ORDERED: SPRAVATO84 MG NS (10:50)
[2023-02-17] MEDS ORDERED: DEXEDRINE10 MG PO (10:51)
[2023-02-17] MEDS ORDERED: INDERAL40 MG PO (10:51)
[2023-02-17] MEDS ORDERED: WELLBUTRIN XL150 MG PO (10:51)
[2023-02-17] MEDS ORDERED: KLONOPIN 0.5MG0.5 MG PO (10:53)
[2023-02-17] MEDS ORDERED: MASON NATURAL2000 IU PO (10:56)
[2023-02-17] MEDS ORDERED: NATURE'S BLEND100 M2 PO (10:57)
[2023-02-18] MEDS ORDERED: NORCO 325 MG-51 TAB PO (08:13)
[2023-05-30] MEDS ORDERED: FLEXERIL 1010 MG/TAB PO (19:36)
[2023-05-30] MEDS ORDERED: ZOFRAN ODT4 MG PO (19:36)
[2023-06-09] MEDS ORDERED: RISPERDAL 1M1 MG/TAB PO (09:18)
[2023-06-09] MEDS ORDERED: INDERAL 20MG20 MG PO (09:18)
[2023-06-09] MEDS ORDERED: NICORETTE4 MG (09:19)
[2023-06-09] MEDS ORDERED: NICORETTE4 MG PO (09:19)
== END 2022-12-05 15:23 | disposition home or self-care (01) ==
LOC: COL.ER 12:57
PROVIDERS: Physician Assistant
DX: R10.32 Left lower quadrant pain (principal); F17.290 Nicotine dependence, other tobacco product, uncomplicated; Z87.442 Personal history of urinary calculi; Z87.42 Personal history of other diseases of the female genital tract; Z28.310 Unvaccinated for COVID-19
CPT/HCPCS: J1885; J7030

== ENCOUNTER 2023-04-13 14:02 | Emergency (ER) | payer MEDICAID ==
[~2023-04-13] VITALS: Ht 162.6 cm; Wt 77.3 kg
[~2023-04-13 14:02] MED LIST changes: +DEXEDRINE10 MG PO; +INDERAL40 MG PO; +KLONOPIN 0.5MG0.5 MG PO; +MASON NATURAL2000 IU PO; +NATURE'S BLEND100 M2 PO; +SPRAVATO84 MG NS; +WELLBUTRIN XL150 MG PO
[2023-04-13 14:35] LABS: COLLECTION METHOD CLEAN CATCH
[2023-04-13 14:50] LABS: TRICYCLIC ANTIDEPRESS URINE NEGATIVE
[2023-04-13 15:04] LABS: BASO % 0.5 % (0.0-2.0); EOS # 0.2 K/mm3 (0.0-0.7); EOS % 2.2 % (0.0-4.0); GRAN % 51.3 % (42.2-75.2); HEMATOCRIT 39.5 % (37.0-47.0); HEMOGLOBIN 13.7 g/dl (12.5-16.0); LYMPH % 38.4 % (20.0-51.0); MEAN CELL VOLUME 90 fl (80.0-100.0); MEAN CORPUSCULAR HEMOGLOBIN 31 pg (27-31); MEAN CORPUSCULAR HGB CONC 35 g/dl (33.0-37.0); MEAN PLATELET VOLUME 9.6 fl (7.4-10.4); MONO # 0.6 K/mm3 (0.1-0.6); MONO % 7.1 % (1.7-9.3); PLATELET COUNT 264 K/mm3 (130-400); RED BLOOD COUNT 4.37 M/mm3 (4.10-5.30); REDCELL DISTRIBUTION WIDTH-CV 12.7 % (11.5-14.5)
[2023-04-13 15:07] LABS: URINE APPEARANCE Clear (CLEAR/HAZY); URINE COLOR Yellow (YELLOW)
[2023-04-13 15:08] LABS: PH 6.5 (5.0-8.5); SQUAMOUS EPITHELIAL 20-50 /hpf (0-10); URINE BACTERIA Moderate /hpf (NONE SEEN); URINE BLOOD Negative (NEGATIVE); URINE GLUCOSE Negative (NEGATIVE); URINE KETONE Negative (NEGATIVE); URINE NITRATE Negative (NEGATIVE); URINE PROTEIN(semi-quant) Negative (NEGATIVE); URINE RBC 0-2 /hpf (0-2); URINE UROBILINOGEN 0.2 E.U/dL (0.2-1.0)
[2023-04-13 15:33] LABS: ALANINE AMINOTRANSFERASE 10 U/L (0-55); ALBUMIN 3.7 gm/dL (3.5-5.0); ALKALINE PHOSPHATASE 66 U/L (40-150); ANION GAP 9 mmol/L (7-16); AST,SGOT 13 U/L (5-34); BILIRUBIN,TOTAL 0.6 mg/dL (0.2-1.2); BLOOD UREA NITROGEN 7 mg/dL (7-19); CALCIUM 9.1 mg/dL (8.4-10.2); CARBON DIOXIDE 26 mmol/L (22-29); CHLORIDE 105 mmol/L (98-107); CREATININE, serum 0.84 mg/dL (0.57-1.11); GLUCOSE 88 mg/dL (70-99); POTASSIUM 3.6 mmol/L (3.5-4.5); SODIUM 140 mmol/L (136-145); TOTAL PROTEIN 6.9 gm/dL (6.2-8.1)
[2023-04-13 15:34] LABS: ACETAMINOPHEN < 1.0 ug/mL (10-30); ALCOHOL(ethanol),MEDICAL < 10 mg/dL (0-10); SALICYLATE < 5.0 mg/dL (15.0-30.0)
[2023-04-13 18:58] VITALS: BP 134/68; PULSE 98; TEMP 98.6
== END 2023-04-13 18:55 | disposition home or self-care (01) ==
LOC: COL.ER 14:02
PROVIDERS: Family Medicine
DX: R45.851 Suicidal ideations (principal); F22 Delusional disorders; Z28.310 Unvaccinated for COVID-19

== ENCOUNTER 2023-07-03 20:40 | Emergency (ER) | payer MEDICAID ==
[~2023-07-03] VITALS: Ht 162.6 cm; Wt 82.3 kg
[~2023-07-03 20:40] MED LIST changes: +INDERAL 20MG20 MG PO; +NICORETTE4 MG; +NICORETTE4 MG PO; +RISPERDAL 1M1 MG/TAB PO
[2023-07-03 20:46] VITALS: TEMP 98.8
[2023-07-03] MEDS ORDERED: LORazepam 1 MG TAB PO ONE (21:30)
[2023-07-03] MEDS ORDERED: NS 1,000 ML IV ONE (22:30)
[2023-07-03] MEDS ORDERED: Home LORazepam 0.5 MG #3 TAB/PACK PO ONE (23:30)
[2023-07-03 23:33] VITALS: BP 119/80; PULSE 99
== END 2023-07-03 23:34 | disposition home or self-care (01) ==
LOC: COL.ER 20:40
DX: F41.9 Anxiety disorder, unspecified (principal); I10 Essential (primary) hypertension; F17.210 Nicotine dependence, cigarettes, uncomplicated
CPT/HCPCS: J7030

== ENCOUNTER 2023-07-07 19:43 | Emergency (ER) | payer MEDICAID ==
[~2023-07-07] VITALS: Ht 162.6 cm; Wt 82.3 kg
[2023-07-07 19:47] VITALS: TEMP 98.5
[2023-07-07 20:19] LABS: COLLECTION METHOD CLEAN CATCH
[2023-07-07 20:28] LABS: BASO % 0.4 % (0.0-2.0); EOS # 0.2 K/mm3 (0.0-0.7); EOS % 2.2 % (0.0-4.0); GRAN # 4.9 K/mm3 (1.4-6.5); GRAN % 52.3 % (42.2-75.2); HEMATOCRIT 41.5 % (37.0-47.0); HEMOGLOBIN 14.2 g/dl (12.5-16.0); LYMPH # 3.4 K/mm3 (1.2-3.4); LYMPH % 36.6 % (20.0-51.0); MEAN CELL VOLUME 91 fl (80.0-100.0); MEAN CORPUSCULAR HEMOGLOBIN 31 pg (27-31); MEAN CORPUSCULAR HGB CONC 34 g/dl (33.0-37.0); MEAN PLATELET VOLUME 9.7 fl (7.4-10.4); MONO # 0.7 K/mm3 (0.1-0.6); MONO % 7.6 % (1.7-9.3); PLATELET COUNT 297 K/mm3 (130-400); RED BLOOD COUNT 4.56 M/mm3 (4.10-5.30); REDCELL DISTRIBUTION WIDTH-CV 12.7 % (11.5-14.5)
[2023-07-07 20:38] LABS: TRICYCLIC ANTIDEPRESS URINE NEGATIVE (NEGATIVE)
[2023-07-07 20:41] LABS: PH 6.5 (5.0-8.5); URINE APPEARANCE Clear (CLEAR/HAZY); URINE COLOR Yellow (YELLOW); URINE GLUCOSE Negative (NEGATIVE); URINE KETONE Negative (NEGATIVE); URINE NITRATE Negative (NEGATIVE); URINE PROTEIN(semi-quant) Negative (NEGATIVE); URINE UROBILINOGEN 0.2 E.U/dL (0.2-1.0)
[2023-07-07 20:42] LABS: URINE BACTERIA Rare /hpf (NONE SEEN); URINE BLOOD Negative (NEGATIVE); URINE RBC 0-2 /hpf (0-2)
[2023-07-07 20:48] LABS: ALANINE AMINOTRANSFERASE 7 U/L (0-55); ALBUMIN 3.8 gm/dL (3.5-5.0); ALKALINE PHOSPHATASE 70 U/L (40-150); ANION GAP 11 mmol/L (7-16); AST,SGOT 12 U/L (5-34); BILIRUBIN,TOTAL 0.4 mg/dL (0.2-1.2); BLOOD UREA NITROGEN 5 mg/dL (7-19); CALCIUM 10.1 mg/dL (8.4-10.2); CARBON DIOXIDE 26 mmol/L (22-29); CHLORIDE 100 mmol/L (98-107); CREATININE, serum 0.77 mg/dL (0.57-1.11); GLUCOSE 95 mg/dL (70-99); SODIUM 137 mmol/L (136-145); TOTAL PROTEIN 7.2 gm/dL (6.2-8.1)
[2023-07-07 20:53] LABS: ACETAMINOPHEN < 1.0 ug/mL (10-30); ALCOHOL(ethanol),MEDICAL < 10 mg/dL (0-10); SALICYLATE < 5.0 mg/dL (15.0-30.0)
[2023-07-07] MEDS ORDERED: LORazepam 1 MG TAB PO ONE (21:15)
[2023-07-07] MEDS ORDERED: [UNRECOGNIZED DRUG - OTHER] PO (21:31)
[2023-07-07] MEDS ORDERED: Home Ondansetron ODT 4 MG #2 ODT/PACK PO ONE (22:30)
[2023-07-07 22:50] VITALS: BP 113/77; PULSE 100
== END 2023-07-07 22:50 | disposition home or self-care (01) ==
LOC: COL.ER 19:43
PROVIDERS: Nurse Practitioner
DX: R45.851 Suicidal ideations (principal); F41.9 Anxiety disorder, unspecified; F17.210 Nicotine dependence, cigarettes, uncomplicated

== ENCOUNTER 2023-09-12 17:51 | Emergency (ER) | payer MEDICAID ==
[~2023-09-12] VITALS: Ht 162.6 cm; Wt 77.3 kg
[~2023-09-12 17:51] MED LIST changes: +[UNRECOGNIZED DRUG - OTHER] PO
[2023-09-12 17:55] VITALS: TEMP 98.7
[2023-09-12] MEDS ORDERED: MINIPRESS 1M1 MG/CAP PO (18:00)
[2023-09-12] MEDS ORDERED: WELLBUTRIN XL300 M1 PO (18:00)
[2023-09-12 18:27] LABS: COLLECTION METHOD CLEAN CATCH
[2023-09-12 18:31] LABS: URINE APPEARANCE CLEAR (CLEAR/HAZY); URINE BLOOD NEGATIVE (NEGATIVE); URINE COLOR YELLOW (YELLOW); URINE GLUCOSE NEGATIVE (NEGATIVE); URINE KETONE NEGATIVE (NEGATIVE); URINE NITRATE NEGATIVE (NEGATIVE); URINE PROTEIN(semi-quant) NEGATIVE (NEGATIVE); URINE UROBILINOGEN 0.2 E.U/dL (0.2-1.0)
[2023-09-12 18:40] LABS: TRICYCLIC ANTIDEPRESS URINE NEGATIVE (NEGATIVE)
[2023-09-12 19:17] LABS: BASO # 0.1 K/mm3 (0.0-0.2); BASO % 0.7 % (0.0-2.0); EOS # 0.1 K/mm3 (0.0-0.7); EOS % 0.9 % (0.0-4.0); GRAN # 6.4 K/mm3 (1.4-6.5); GRAN % 66.7 % (42.2-75.2); HEMATOCRIT 39.9 % (37.0-47.0); LYMPH # 2.4 K/mm3 (1.2-3.4); LYMPH % 25.2 % (20.0-51.0); MEAN CELL VOLUME 92 fl (80.0-100.0); MEAN CORPUSCULAR HEMOGLOBIN 32 pg (27-31); MEAN CORPUSCULAR HGB CONC 35 g/dl (33.0-37.0); MONO # 0.6 K/mm3 (0.1-0.6); MONO % 6.1 % (1.7-9.3); PLATELET COUNT 272 K/mm3 (130-400); RED BLOOD COUNT 4.35 M/mm3 (4.10-5.30); REDCELL DISTRIBUTION WIDTH-CV 12.8 % (11.5-14.5)
[2023-09-12 19:29] LABS: ALANINE AMINOTRANSFERASE 10 U/L (0-55); ALKALINE PHOSPHATASE 65 U/L (40-150); ANION GAP 10 mmol/L (7-16); AST,SGOT 14 U/L (5-34); BILIRUBIN,TOTAL 0.3 mg/dL (0.2-1.2); BLOOD UREA NITROGEN 6 mg/dL (7-19); CALCIUM 9.7 mg/dL (8.4-10.2); CHLORIDE 108 mmol/L (98-107); CREATININE, serum 0.84 mg/dL (0.57-1.11); GLUCOSE 86 mg/dL (70-99); POTASSIUM 3.7 mmol/L (3.5-4.5); SODIUM 140 mmol/L (136-145); TOTAL PROTEIN 7.1 gm/dL (6.2-8.1)
[2023-09-12 19:30] LABS: ALCOHOL(ethanol),MEDICAL < 10 mg/dL (0-10); SALICYLATE < 5.0 mg/dL (15.0-30.0)
[2023-09-12] MEDS ORDERED: hydrOXYzine HCl 10 MG TAB PO ONE (19:30)
[2023-09-12] MEDS ORDERED: Ibuprofen 600 MG TAB PO ONE (20:30)
[2023-09-12 22:06] VITALS: BP 134/93; PULSE 92
== END 2023-09-12 22:06 | disposition home or self-care (01) ==
LOC: COL.ER 17:51
PROVIDERS: Nurse Practitioner
DX: R44.0 Auditory hallucinations (principal); F17.200 Nicotine dependence, unspecified, uncomplicated; Z79.899 Other long term (current) drug therapy

== ENCOUNTER 2023-09-14 16:29 | Emergency (ER) | payer MEDICAID ==
[~2023-09-14] VITALS: Ht 162.6 cm; Wt 79.5 kg
[~2023-09-14 16:29] MED LIST changes: +MINIPRESS 1M1 MG/CAP PO; +WELLBUTRIN XL300 M1 PO
[2023-09-14 16:33] VITALS: TEMP 98.5
[2023-09-14 17:01] LABS: COLLECTION METHOD CLEAN CATCH
[2023-09-14 17:05] LABS: PH 5.5 (5.0-8.5); URINE APPEARANCE CLEAR (CLEAR/HAZY); URINE BLOOD NEGATIVE (NEGATIVE); URINE COLOR YELLOW (YELLOW); URINE GLUCOSE NEGATIVE (NEGATIVE); URINE KETONE NEGATIVE (NEGATIVE); URINE NITRATE NEGATIVE (NEGATIVE); URINE PROTEIN(semi-quant) NEGATIVE (NEGATIVE); URINE UROBILINOGEN 0.2 E.U/dL (0.2-1.0)
[2023-09-14 17:23] LABS: TRICYCLIC ANTIDEPRESS URINE NEGATIVE (NEGATIVE)
[2023-09-14] MEDS ORDERED: LORazepam 1 MG TAB PO ONE (17:30)
[2023-09-14 17:38] LABS: BASO % 0.5 % (0.0-2.0); EOS # 0.1 K/mm3 (0.0-0.7); EOS % 0.6 % (0.0-4.0); GRAN # 6.2 K/mm3 (1.4-6.5); GRAN % 69.5 % (42.2-75.2); HEMATOCRIT 40.6 % (37.0-47.0); HEMOGLOBIN 14.3 g/dl (12.5-16.0); LYMPH # 2.2 K/mm3 (1.2-3.4); LYMPH % 24.7 % (20.0-51.0); MEAN CELL VOLUME 92 fl (80.0-100.0); MEAN CORPUSCULAR HEMOGLOBIN 32 pg (27-31); MEAN CORPUSCULAR HGB CONC 35 g/dl (33.0-37.0); MEAN PLATELET VOLUME 9.4 fl (7.4-10.4); MONO # 0.4 K/mm3 (0.1-0.6); MONO % 4.1 % (1.7-9.3); PLATELET COUNT 281 K/mm3 (130-400); RED BLOOD COUNT 4.42 M/mm3 (4.10-5.30); REDCELL DISTRIBUTION WIDTH-CV 12.8 % (11.5-14.5)
[2023-09-14 18:11] LABS: ALANINE AMINOTRANSFERASE 12 U/L (0-55); ALKALINE PHOSPHATASE 61 U/L (40-150); ANION GAP 12 mmol/L (7-16); AST,SGOT 13 U/L (5-34); BILIRUBIN,TOTAL 0.3 mg/dL (0.2-1.2); BLOOD UREA NITROGEN 5 mg/dL (7-19); CALCIUM 9.5 mg/dL (8.4-10.2); CHLORIDE 107 mmol/L (98-107); CREATININE, serum 0.85 mg/dL (0.57-1.11); GLUCOSE 89 mg/dL (70-99); POTASSIUM 3.9 mmol/L (3.5-4.5); SODIUM 141 mmol/L (136-145); TOTAL PROTEIN 7.1 gm/dL (6.2-8.1)
[2023-09-14 18:12] LABS: ALCOHOL(ethanol),MEDICAL < 10 mg/dL (0-10); SALICYLATE < 5.0 mg/dL (15.0-30.0)
[2023-09-14] MEDS ORDERED: Prazosin 1 MG CAP PO ONE (21:30)
[2023-09-15] MEDS ORDERED: Acetaminophen 325 MG TAB PO ONE (09:15)
[2023-09-15 09:20] VITALS: BP 119/89; PULSE 98
[2023-09-15] MEDS ORDERED: LORazepam 1 MG TAB PO ONE (09:30)
== END 2023-09-15 09:22 ==
LOC: COL.ER 16:29
PROVIDERS: Physician Assistant
DX: R44.0 Auditory hallucinations (principal); F17.210 Nicotine dependence, cigarettes, uncomplicated

== ENCOUNTER 2023-12-31 14:54 | Emergency (ER) | payer MEDICAID ==
[~2023-12-31] VITALS: Ht 162.6 cm; Wt 68.2 kg
[2023-12-31] MEDS ORDERED: clonazePAM 0.5 MG TAB PO ONE (15:30)
[2023-12-31] MEDS ORDERED: Acetaminophen 500 MG TAB PO ONE (15:30)
[2023-12-31 15:31] LABS: COLLECTION METHOD CLEAN CATCH
[2023-12-31 15:39] LABS: PH 5.5 (5.0-8.5); URINE APPEARANCE CLEAR (CLEAR/HAZY); URINE BLOOD NEGATIVE (NEGATIVE); URINE COLOR YELLOW (YELLOW); URINE GLUCOSE NEGATIVE (NEGATIVE); URINE KETONE 1+ (NEGATIVE); URINE NITRATE NEGATIVE (NEGATIVE); URINE PROTEIN(semi-quant) NEGATIVE (NEGATIVE); URINE UROBILINOGEN 0.2 E.U/dL (0.2-1.0)
[2023-12-31 15:52] LABS: TRICYCLIC ANTIDEPRESS URINE NEGATIVE (NEGATIVE)
[2023-12-31] MEDS ORDERED: NS 1,000 ML IV ONE (16:00)
[2023-12-31] MEDS ORDERED: Nicotine 21 MG DAILY PATCH TD ONE (16:15)
[2023-12-31] MEDS ORDERED: KLONOPIN 0.5MG0.5 MG PO (16:40)
[2023-12-31] MEDS ORDERED: VITAMIN B COMPL1 SGL PO (16:41)
[2023-12-31] MEDS ORDERED: ATARAX 25MG25 MG/TAB PO ×2 (16:43)
[2023-12-31 18:04] LABS: BASO % 0.4 % (0.0-2.0); EOS # 0.3 K/mm3 (0.0-0.7); EOS % 2.4 % (0.0-4.0); GRAN # 7.4 K/mm3 (1.4-6.5); GRAN % 70.5 % (42.2-75.2); HEMATOCRIT 37.1 % (37.0-47.0); HEMOGLOBIN 13.1 g/dl (12.5-16.0); LYMPH # 2.2 K/mm3 (1.2-3.4); LYMPH % 21.1 % (20.0-51.0); MEAN CELL VOLUME 88 fl (80.0-100.0); MEAN CORPUSCULAR HEMOGLOBIN 31 pg (27-31); MEAN CORPUSCULAR HGB CONC 35 g/dl (33.0-37.0); MEAN PLATELET VOLUME 10.2 fl (7.4-10.4); MONO # 0.5 K/mm3 (0.1-0.6); MONO % 5.2 % (1.7-9.3); PLATELET COUNT 230 K/mm3 (130-400); REDCELL DISTRIBUTION WIDTH-CV 13.7 % (11.5-14.5)
[2023-12-31 18:06] VITALS: TEMP 97.8
[2023-12-31] MEDS ORDERED: Ibuprofen 600 MG TAB PO ONE (18:15)
[2023-12-31 18:21] LABS: ALANINE AMINOTRANSFERASE 9 U/L (0-55); ALBUMIN 3.3 g/dL (3.5-5.0); ALKALINE PHOSPHATASE 52 U/L (40-150); ANION GAP 13 mmol/L (7-16); AST,SGOT 13 U/L (5-34); BILIRUBIN,TOTAL 0.5 mg/dL (0.2-1.2); BLOOD UREA NITROGEN 5 mg/dL (7-19); CALCIUM 8.7 mg/dL (8.4-10.2); CHLORIDE 104 mEq/L (98-107); CREATININE, serum 0.68 mg/dL (0.57-1.11); GLUCOSE 78 mg/dL (70-99); POTASSIUM 4.5 mEq/L (3.5-4.5); SODIUM 137 mEq/L (136-145); TOTAL PROTEIN 5.9 g/dl (6.2-8.1)
[2023-12-31 18:25] LABS: ALCOHOL(ethanol),MEDICAL < 10 mg/dL (0-10); SALICYLATE < 5.0 mg/dL (15.0-30.0)
[2023-12-31] MEDS ORDERED: LORazepam 1 MG TAB PO ONE (20:00)
[2024-01-01 07:40] VITALS: BP 121/73; PULSE 101
== END 2024-01-01 07:40 ==
LOC: COL.ER 14:54
PROVIDERS: Nurse Practitioner
DX: R44.0 Auditory hallucinations (principal); R51.9 Headache, unspecified; F41.9 Anxiety disorder, unspecified; F17.210 Nicotine dependence, cigarettes, uncomplicated; F17.290 Nicotine dependence, other tobacco product, uncomplicated

== ENCOUNTER 2024-01-14 10:12 | Emergency (ER) | payer MEDICAID ==
[~2024-01-14] VITALS: Ht 162.6 cm; Wt 60.5 kg
[~2024-01-14 10:12] MED LIST changes: +VITAMIN B COMPL1 SGL PO
[2024-01-14 10:54] LABS: COLLECTION METHOD CLEAN CATCH
[2024-01-14 11:00] LABS: BASO # 0.1 K/mm3 (0.0-0.2); BASO % 0.7 % (0.0-2.0); EOS # 0.2 K/mm3 (0.0-0.7); EOS % 1.6 % (0.0-4.0); GRAN % 67.1 % (42.2-75.2); HEMATOCRIT 41.5 % (37.0-47.0); HEMOGLOBIN 14.8 g/dl (12.5-16.0); LYMPH # 2.2 K/mm3 (1.2-3.4); LYMPH % 21.4 % (20.0-51.0); MEAN CELL VOLUME 90 fl (80.0-100.0); MEAN CORPUSCULAR HEMOGLOBIN 32 pg (27-31); MEAN CORPUSCULAR HGB CONC 36 g/dl (33.0-37.0); MEAN PLATELET VOLUME 10.3 fl (7.4-10.4); MONO # 0.9 K/mm3 (0.1-0.6); MONO % 8.1 % (1.7-9.3); PLATELET COUNT 268 K/mm3 (130-400); RED BLOOD COUNT 4.59 M/mm3 (4.10-5.30); REDCELL DISTRIBUTION WIDTH-CV 14.5 % (11.5-14.5)
[2024-01-14] MEDS ORDERED: LORazepam 1 MG TAB PO ONE ×2 (11:00→19:15)
[2024-01-14 11:05] LABS: PH 6.5 (5.0-8.5); URINE APPEARANCE CLOUDY (CLEAR/HAZY); URINE BLOOD NEGATIVE (NEGATIVE); URINE COLOR YELLOW (YELLOW); URINE GLUCOSE NEGATIVE (NEGATIVE); URINE KETONE 1+ (NEGATIVE); URINE NITRATE NEGATIVE (NEGATIVE); URINE PROTEIN(semi-quant) NEGATIVE (NEGATIVE); URINE UROBILINOGEN 0.2 E.U/dL (0.2-1.0)
[2024-01-14 11:19] LABS: ALANINE AMINOTRANSFERASE 10 U/L (0-55); ALBUMIN 3.6 g/dL (3.5-5.0); ALKALINE PHOSPHATASE 57 U/L (40-150); ANION GAP 12 mmol/L (7-16); AST,SGOT 14 U/L (5-34); BILIRUBIN,TOTAL 0.4 mg/dL (0.2-1.2); BLOOD UREA NITROGEN 7 mg/dL (7-19); CALCIUM 9.2 mg/dL (8.4-10.2); CHLORIDE 104 mEq/L (98-107); CREATININE, serum 0.72 mg/dL (0.57-1.11); GLUCOSE 104 mg/dL (70-99); SODIUM 137 mEq/L (136-145); TOTAL PROTEIN 6.9 g/dl (6.2-8.1)
[2024-01-14 11:25] LABS: TRICYCLIC ANTIDEPRESS URINE NEGATIVE (NEGATIVE)
[2024-01-14] MEDS ORDERED: Nicotine 14 MG DAILY PATCH TD ONE (11:45)
[2024-01-14 11:48] LABS: ALCOHOL(ethanol),MEDICAL < 10 mg/dL (0-10); SALICYLATE < 5.0 mg/dL (15.0-30.0)
[2024-01-14] MEDS ORDERED: Ibuprofen 600 MG TAB PO ONE (16:30)
[2024-01-14 20:00] VITALS: BP 126/87; PULSE 87
[2024-01-14 22:00] VITALS: BP 124/78; PULSE 80
[2024-01-15 03:45] VITALS: BP 112/78; PULSE 84
[2024-01-15] MEDS ORDERED: Ibuprofen 600 MG TAB PO ONE (04:15)
[2024-01-15] MEDS ORDERED: LORazepam 1 MG TAB PO ONE (04:15)
[2024-01-15 07:40] VITALS: BP 121/55; PULSE 95; TEMP 98.3
== END 2024-01-15 07:50 ==
LOC: COL.ER 10:12
PROVIDERS: Physician Assistant
DX: R45.851 Suicidal ideations (principal); R44.0 Auditory hallucinations; F41.9 Anxiety disorder, unspecified; F17.210 Nicotine dependence, cigarettes, uncomplicated; F17.290 Nicotine dependence, other tobacco product, uncomplicated

== ENCOUNTER 2024-01-25 18:16 | Emergency (ER) | payer MEDICAID ==
[~2024-01-25] VITALS: Ht 162.6 cm; Wt 61.4 kg
[2024-01-25 18:29] VITALS: TEMP 98.4
[2024-01-25 20:05] LABS: COLLECTION METHOD CLEAN CATCH
[2024-01-25 20:09] LABS: BASO # 0.1 K/mm3 (0.0-0.2); BASO % 0.7 % (0.0-2.0); EOS # 0.3 K/mm3 (0.0-0.7); EOS % 2.9 % (0.0-4.0); GRAN # 7.1 K/mm3 (1.4-6.5); HEMATOCRIT 41.1 % (37.0-47.0); LYMPH # 2.1 K/mm3 (1.2-3.4); LYMPH % 20.9 % (20.0-51.0); MEAN CELL VOLUME 94 fl (80.0-100.0); MEAN CORPUSCULAR HEMOGLOBIN 32 pg (27-31); MEAN CORPUSCULAR HGB CONC 34 g/dl (33.0-37.0); MEAN PLATELET VOLUME 10.3 fl (7.4-10.4); MONO # 0.6 K/mm3 (0.1-0.6); PLATELET COUNT 257 K/mm3 (130-400); RED BLOOD COUNT 4.36 M/mm3 (4.10-5.30); REDCELL DISTRIBUTION WIDTH-CV 14.2 % (11.5-14.5)
[2024-01-25] MEDS ORDERED: Ondansetron 4 MG/2 ML VIAL IV ONE (20:15)
[2024-01-25] MEDS ORDERED: Morphine 4 MG/ML VIAL IV ONE (20:15)
[2024-01-25] MEDS ORDERED: NS 1,000 ML IV ONE (20:15)
[2024-01-25 20:21] LABS: ALBUMIN 3.5 g/dL (3.5-5.0); BILIRUBIN,TOTAL 0.2 mg/dL (0.2-1.2); CALCIUM 9.2 mg/dL (8.4-10.2); CREATININE, serum 0.89 mg/dL (0.57-1.11); TOTAL PROTEIN 6.6 g/dl (6.2-8.1)
[2024-01-25 20:39] LABS: URINE APPEARANCE Clear (CLEAR/HAZY); URINE BLOOD Negative (NEGATIVE); URINE COLOR YELLOW (YELLOW); URINE GLUCOSE Negative (NEGATIVE); URINE KETONE Negative (NEGATIVE); URINE NITRATE Negative (NEGATIVE); URINE PROTEIN(semi-quant) Negative (NEGATIVE); URINE UROBILINOGEN 0.2 E.U/dL (0.2-1.0)
[2024-01-25] MEDS ORDERED: Iohexol 300 - 100 ML VIAL IV ONE (21:03)
[2024-01-25] MEDS ORDERED: NS 50 ML IV SCH (21:03)
[2024-01-25] MEDS ORDERED: Ketorolac 15 MG/ML VIAL IV ONE (22:00)
[2024-01-25] MEDS ORDERED: Loperamide 2 MG CAP PO ONE (22:30)
[2024-01-25 22:42] VITALS: BP 124/78; PULSE 76
== END 2024-01-25 22:43 | disposition home or self-care (01) ==
LOC: COL.ER 18:16
PROVIDERS: Physician Assistant
DX: R19.7 Diarrhea, unspecified (principal); R11.2 Nausea with vomiting, unspecified
CPT/HCPCS: J1885; J2270; J2405; J7030; Q9967

== ENCOUNTER 2024-01-27 11:16 | Emergency (ER) | payer MEDICAID ==
[~2024-01-27] VITALS: Ht 162.6 cm; Wt 61.4 kg
[2024-01-27 11:22] VITALS: BP 117/76; PULSE 70; TEMP 98.5
[2024-01-27 12:14] LABS: BASO # 0.1 K/mm3 (0.0-0.2); BASO % 0.5 % (0.0-2.0); EOS # 0.2 K/mm3 (0.0-0.7); EOS % 1.8 % (0.0-4.0); GRAN # 7.4 K/mm3 (1.4-6.5); GRAN % 76.2 % (42.2-75.2); HEMOGLOBIN 12.5 g/dl (12.5-16.0); LYMPH # 1.6 K/mm3 (1.2-3.4); LYMPH % 16.5 % (20.0-51.0); MEAN CELL VOLUME 91 fl (80.0-100.0); MEAN CORPUSCULAR HEMOGLOBIN 32 pg (27-31); MEAN CORPUSCULAR HGB CONC 35 g/dl (33.0-37.0); MEAN PLATELET VOLUME 10.5 fl (7.4-10.4); MONO # 0.5 K/mm3 (0.1-0.6); MONO % 4.8 % (1.7-9.3); PLATELET COUNT 234 K/mm3 (130-400); RED BLOOD COUNT 3.94 M/mm3 (4.10-5.30)
[2024-01-27 12:36] LABS: ALANINE AMINOTRANSFERASE 10 U/L (0-55); ALBUMIN 3.3 g/dL (3.5-5.0); ALKALINE PHOSPHATASE 56 U/L (40-150); ANION GAP 8 mmol/L (7-16); AST,SGOT 13 U/L (5-34); BILIRUBIN,TOTAL 0.3 mg/dL (0.2-1.2); BLOOD UREA NITROGEN 8 mg/dL (7-19); CALCIUM 8.9 mg/dL (8.4-10.2); CHLORIDE 107 mEq/L (98-107); CREATININE, serum 0.82 mg/dL (0.57-1.11); GLUCOSE 121 mg/dL (70-99); POTASSIUM 4.3 mEq/L (3.5-4.5); SODIUM 138 mEq/L (136-145); TOTAL PROTEIN 6.2 g/dl (6.2-8.1)
[2024-01-27 12:52] LABS: ALCOHOL(ethanol),MEDICAL < 10 mg/dL (0-10); SALICYLATE < 5.0 mg/dL (15.0-30.0)
== END 2024-01-27 12:49 | disposition left against medical advice (07) ==
LOC: COL.ER 11:16
PROVIDERS: Nurse Practitioner
DX: R44.0 Auditory hallucinations (principal); R51.9 Headache, unspecified

== ENCOUNTER → 2024-02-05 | Outpatient (CLI) | payer MEDICAID ==
[~2024-02-05] MED LIST changes: +Iohexol 300 - 100 ML VIAL IV ONE; +NS 100 ML IV SCH
== END ==
LOC: COL.RAD 13:58
DX: R51.9 Headache, unspecified (principal)
CPT/HCPCS: Q9967

== ENCOUNTER 2024-03-15 18:55 | Emergency (ER) | payer MEDICAID ==
[~2024-03-15] VITALS: Ht 162.6 cm; Wt 57.7 kg
[~2024-03-15 18:55] MED LIST changes: -Iohexol 300 - 100 ML VIAL IV ONE; -NS 100 ML IV SCH
[2024-03-15 18:57] VITALS: TEMP 98.4
[2024-03-15] MEDS ORDERED: LORazepam 0.5 MG TAB PO ONE (19:30)
[2024-03-15 20:27] LABS: BASO # 0.1 K/mm3 (0.0-0.2); BASO % 0.7 % (0.0-2.0); EOS # 0.2 K/mm3 (0.0-0.7); EOS % 2.5 % (0.0-4.0); GRAN # 5.3 K/mm3 (1.4-6.5); GRAN % 65.1 % (42.2-75.2); HEMATOCRIT 38.9 % (37.0-47.0); HEMOGLOBIN 13.7 g/dl (12.5-16.0); LYMPH % 24.8 % (20.0-51.0); MEAN CELL VOLUME 93 fl (80.0-100.0); MEAN CORPUSCULAR HEMOGLOBIN 33 pg (27-31); MEAN CORPUSCULAR HGB CONC 35 g/dl (33.0-37.0); MEAN PLATELET VOLUME 9.7 fl (7.4-10.4); MONO # 0.5 K/mm3 (0.1-0.6); MONO % 6.2 % (1.7-9.3); PLATELET COUNT 246 K/mm3 (130-400); RED BLOOD COUNT 4.19 M/mm3 (4.10-5.30); REDCELL DISTRIBUTION WIDTH-CV 12.8 % (11.5-14.5)
[2024-03-15 20:45] LABS: ALANINE AMINOTRANSFERASE 10 U/L (0-55); ALBUMIN 3.8 g/dL (3.5-5.0); ALKALINE PHOSPHATASE 62 U/L (40-150); ANION GAP 11 mmol/L (7-16); AST,SGOT 15 U/L (5-34); BILIRUBIN,TOTAL 0.2 mg/dL (0.2-1.2); BLOOD UREA NITROGEN 11 mg/dL (7-19); CALCIUM 8.4 mg/dL (8.4-10.2); CHLORIDE 105 mEq/L (98-107); CREATININE, serum 0.73 mg/dL (0.57-1.11); GLUCOSE 91 mg/dL (70-99); POTASSIUM 4.1 mEq/L (3.5-4.5); SODIUM 137 mEq/L (136-145); TOTAL PROTEIN 6.6 g/dl (6.2-8.1)
[2024-03-15 21:12] LABS: TROPONIN-I < 0.010 ng/mL (0.00-0.033)
[2024-03-15 21:47] VITALS: BP 112/87; PULSE 99
== END 2024-03-15 21:50 | disposition home or self-care (01) ==
LOC: COL.ER 18:55
PROVIDERS: Personal Emergency Response Attendant
DX: R00.2 Palpitations (principal); Z90.89 Acquired absence of other organs; Z90.710 Acquired absence of both cervix and uterus